=== PATIENT | female | born 1970 | race Caucasian/White ===

== ENCOUNTER → 2017-04-20 | Outpatient (CLI) | payer BC ==
[~2017-04-20] MED LIST: AMLO-114 PO; BACL10TA PO; GABA-113 PO; GADOXETATE DISODIUM IV PRN; GLIP5TAB3 PO; LOSA50TA6 PO; METF-383 PO; ONDA4TAB46 PO; OXYC7.5T65 PO; PANC6000 PO; PANT40TA PO; PROC1TAB5 PO; XLD/500 PO
--- NOTE | 2017-04-20 11:33 | DIAGNOSTIC IMAGING REPORT ---
ABDOMINAL MRI WITH AND WITHOUT INTRAVENOUS CONTRAST HISTORY: Assess for hepatic metastatic disease. PANCREATIC CA, RISING TUMOR MARKERS TECHNIQUE: Multiplanar multisequence MRI of the abdomen was performed both before and after the intravenous administration of 10 cc of Eovist contrast to evaluate the liver. COMPARISON STUDY: Outside hospital chest CT 12/09/2016. FINDINGS: No hepatic masses. Mild periportal edema. Prior Whipple procedure. The spleen and kidneys are unremarkable. Gallbladder surgically absent. Mildly enlarged periaortic lymph nodes. Dominant lymph node measures 12 x 7 mm. The residual pancreatic body and tail enhances normally. No suspicious osseous lesions identified. The lung bases are clear. The visualized loops of bowel show no wall thickening or obstruction. Prior midline incision. Mild thickening of the adrenal glands. The main portal vein is patent. IMPRESSION: 1. No hepatic masses. 2. Mild periportal edema. 3. Prior Whipple procedure. 4. A few mildly enlarged periaortic lymph nodes. This could represent metastatic disease. Follow-up is recommended Electronically signed by: Jack Vaughn M.D. 04/20/2017 11:31 AM Dictated Date/Time: 04/20/2017 11:17 AM
== END | disposition home or self-care (01) ==
LOC: C.MRIBC 08:36
PROVIDERS: ATTEND Internal Medicine Hematology & Oncology
DX: C25.9 Malignant neoplasm of pancreas, unspecified (principal)

== ENCOUNTER → 2017-10-06 | Outpatient (CLI) | payer BC ==
[~2017-10-06] MED LIST changes: -AMLO-114 PO; +AMLO10TA3 PO; +AMOX1TAB43 PO; +ATV5 SL; +BISM262S27 PO; +CEPH-571 PO; +CEPH500C2 PO; +CZR50 PO; +DIPH-416 PO; +DLDI.5 IV; +DRGTP12 TOP; +DRGTP25 TD; +DRGTP50 TOP; +DRGTP75 TOP; +ENOX80IN SQ; +FNTTP25 TOP; +FRS/40 PO; -GABA-113 PO; +GABA800T PO; -GADOXETATE DISODIUM IV PRN; +GLIP10TA9 PO; +GLIP5TAB11 PO; -GLIP5TAB3 PO; +HYDR2TAB48 PO; +METO25TA3 PO; +NORT10CA2 PO; +ONDA-170 PO; -ONDA4TAB46 PO; +OXYC-90 PO; -OXYC7.5T65 PO; -PANT40TA PO; +POTA-639 PO; +POTA1CAP2 PO; +PROC10TA PO; -PROC1TAB5 PO; +RXC30 PO; +RXNS10 PO; +SCOP1.5D2 TD; +SERT-234 PO; +SPIR25TA5 PO; +SULF800T23 PO; +TPRSR25 PO; +spironolactone
[2017-10-06 15:03] VITALS: BP 105/70; PULSE 57; TEMP 36.7; O2SAT 97
--- NOTE | 2017-10-06 17:12 | Radiation Oncology Follow-Up ---
Radiation Oncology Follow-Up Date of Visit Oct 06, 2017. Reason For Visit One-month follow-up in cancer survivorship care plan Radiation Completion Date finished 08-31-2017 Diagnosis (1) Pancreatic cancer Status: Acute Onset Date: 09/24/2016 Histology Subtype: adenocarcinoma Stage: ll (B) Permanent Comment: Painless jaundice Status post stent placement and ERCP 09/03/2016 Status post Whipple procedure 10/28/2016 Adenocarcinoma of the head of the pancreas Stage pT3 pN1 M0 positive, bile duct margin Systemic chemotherapy with gemcitabine and capecitabine planned for 6 cycles Status post completion of combined radiation and chemotherapy 08/31/2017 she received 5400 cGy. Treatment compromised due to delays secondary to Clostridium difficile Last Edited By: Maribell Chaudhry on Sep 10, 2017 08:17 History of Present Illness Ms. Evans presented with a history of 70 pound weight loss, pruritus, jaundice and abdominal pain. On 08/11/2016 patient underwent an ultrasound of the abdomen which revealed hepatomegaly with increased echogenicity likely due to fatty infiltration of the liver. The common bile duct measured 1.14 cm in diameter. On 2015 patient underwent an MRI. This showed a 1.3 cm long segment of marked near wing of the mid common bile duct. The appearance was more consistent with a stricture then with a stone. There was considerable distention of the biliary tree above the level of the stricture. The degree of up stream biliary ductal distention was similar to that seen on the prior ultrasound in greater then noted on a prior CT scan from 04/03/2016. A stent was placed. These findings were felt to be worrisome for malignant stricture and an ERCP was recommended. On 09/03/2016 the patient underwent an ERCP at [facility]. The upper GI tract was grossly normal. The entire biliary tree was diffusely dilated secondary to a stricture. The largest diameter was 1.3 cm. The lower third of the main bile duct contained a single localized stenosis 2.0 cm in length. The stricture had a malignant appearance and cytology was performed. Cytology was reportedly negative. Therefore on September 08 patient underwent an upper GI endoscopy by Dr. Celaya. The biliary stent was identified in the upper GI was otherwise unremarkable. A gastric biopsy was negative. Fine-needle aspiration biopsy of the celiac lymph node level 20 was benign and a fine-needle aspiration biopsy head of the pancreas was benign. On Dr. Celaya performed an upper EUS for a suspected mass in the pancreas. The stent was visualized in the common bile duct there was no significant endosonographic abnormalities in the left lobe of the liver. There was no sign of significant endosonographic abnormality in the pancreatic body tail or pancreatic duct. Pancreas was well visualized and an irregular mass was identified in the pancreatic head. This mass was hypoechoic measuring 2.2 x 1.7 cm in maximal dimension. An intact interface was seen between the mass in the superior mesenteric artery, portal vein, splenic vein and duodenal suggesting a lack of invasion. The remainder the pancreas was examined. Fine-needle aspiration for cytology was performed. This showed cells that were suspicious for malignancy with a fragments of atypical ductal epithelium that were suspicious for carcinoma. On 10/05/2016 Dr. Celaya performed an endoscopic ultrasound that again identified a mass in the pancreatic head that was staged as a T2 NX M0 by endosonographic criteria On 10/08/[address] scan of the chest abdomen and pelvis with IV contrast and oral contrast. This showed an ill-defined hypoechoic mass measuring 1.8 x 2.1 cm involving the pancreatic head and uncinate process. There were mildly enlarged upper abdominal and retroperitoneal lymph nodes which were indeterminant. There were slightly prominent pericardial lymph nodes also indeterminant. A few bilateral lung nodules and thickening of the adrenals probably due to hyperplasia. Patient was seen by Dr. Keaton Solitario and evaluated for the possible role of surgery. He discussed a pancreaticoduodenectomy and pedicled omental flap. This was scheduled and performed on 10/28/2016. 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 The tumor measured 3.2 x 2.9 x 2.4 cm in greatest dimension and extends to the bile duct margin and 1 mm from the peripancreatic soft tissue margin. The pancreatic distal margin, the uncinate margin, the stomach and duodenal margins were all negative for carcinoma. There was evidence of lymphovascular invasion. 17 lymph nodes were taken 7 of which were positive for metastatic carcinoma. The tumor invaded the king-pancreatic soft tissue. There was evidence of perineural invasion. The final pathologic stage was pT3 pN1, Accession #: [id number]. Patient was seen by Dr. Yaz Olivares for evaluation of the role of adjuvant systemic chemotherapy on 11/25/2016. She discussed adjuvant treatment options that included a GemCAP regimen consisting of Gemcitabine 1000 milligrams per meter squared on days 1 and 8 and every 28 days,Xeloda 830 mg/m on days 1-21 every 28 days for 6 cycles followed by chemotherapy RT with Capecitabine if no recurrences are noted. She recommended restaging CT scans of the chest abdomen and pelvis was performed on 12/10/2016. These showed the expected postsurgical changes from the Whipple procedure is without evidence of recurrent or metastatic disease. Patient agreed and started her first cycle of systemic chemotherapy which she tolerated well. Patient presents today to discuss the potential role of radiation following completion of her initial portion of chemotherapy. It is for this reason the patient is seen in referral. She has now completed 5 of a planned 6 cycles of chemotherapy. She is receiving gemcitabine and Xeloda. The medication is being given 3 weeks on and one-week off. She does have fatigue. She has had some episodes of nausea and vomiting. She also had associated diarrhea. She has had cutb-van-aouu syndrome. All side effects have been manageable. She has soreness of the mouth. She uses Magic mouthwash and saline rinses. She stated this coming Wednesday we will be her final dose of chemotherapy. She has returned today to begin the process of preparing for radiation therapy. She stated that she had an echocardiogram and has been diagnosed with hypertrophic cardiomyopathy. She is scheduled to see a bilingual call center representative. She completed her final cycle of treatment and then returned for combined radiation and chemotherapy. The chemotherapy Was comprised of Xeloda. The radiation was completed 08/31/2017. She received 5400 cGy Interim History She continues to have issues with diarrhea. She has 10 bowel movements per day. She is being followed by gastroenterology. She is currently using Kaopectate and cholestyramine. The pancreatic enzyme Creon has been increased from 2 pills to 4. That change was made yesterday. She has intermittent abdominal cramping and pain. She previously had 2 episodes of Clostridium difficile. She was recently checked again and was negative for Clostridium difficile. She has discomfort in the right upper quadrant. She's had no vomiting and occasional nausea. She's been seen in follow-up by medical oncology and recheck scanning has been scheduled. Allergies Coded Allergies: Eggs or Egg-derived Products (Verified Allergy, Severe, edema airway and nausea/vomiting, 12/15/16) Pregabalin (Verified Allergy, Severe, ANAPHYLAXIS, 10/06/17) face swelling Hydrochlorothiazide (Verified Allergy, Mild, hives, 12/15/16) Simethicone (Verified Allergy, Mild, Muscle pain, 12/15/16) Home Medications Scheduled Amlodipine (Norvasc), 10 MG PO DAILY Baclofen (Lioresal), 10 MG PO TID Bismuth Subsalicylate (Kaopectate), 30 ML PO UD Furosemide (Lasix), 20 MG PO BID Gabapentin (Neurontin), 800 MG PO TID Glipizide (Glucotrol), 1 TAB PO BID Losartan Potassium (Cozaar), 1 TAB PO DAILY Metformin Hcl (Glucophage), 850 MG PO BID Pancrelipase (Lipase-Protease- (Creon), 4 CAP PO QID Potassium Ext Rel (Klor-Con), 40 MEQ PO BID [spironolactone], 10 MG BID Scheduled PRN Oxycodone Ir (Roxicodone Ir), 15 MG PO Q4H PRN for Severe Pain Prochlorperazine Maleate (Compazine), 10 MG PO Q6H PRN for Nausea or Vomiting Review of Systems Gastrointestinal: Symptoms: Nausea, Diarrhea GI Comments: diarrhea many times a day 5-12 times a day ( does not have c diff ) Oral: Symptoms: Scant Saliva/Dry Mouth Other Oral Symptoms: "occ difficulty swallowing " Respiratory: Symptoms: WNL Urinary: Symptoms: Nocturia Comments: 5 times a night , denies pain or burning , gets up to move her bowels Skin: Symptoms: No Problems Additional Notes: She completed a distress management report and answered "no" to all questions other than she has concerns about the ongoing problem with diarrhea. Physical Exam Vital Signs Date Time Temp Pulse Resp B/P (MAP) Pulse Ox O2 Delivery O2 Flow Rate FiO2 10/06/17 15:03 36.7 57 16 105/70 97 ECOG Performance Status: 0 General Appearance: no apparent distress Eyes: normal inspection, EOMI ENT: normal ENT inspection, hearing grossly normal Respiratory/Chest: lungs clear, no respiratory distress, no accessory muscle use Cardiovascular: regular rate, rhythm, no gallop, no murmur Abdomen: normal bowel sounds, soft, no organomegaly, no pulsatile mass, + pertinent finding (very slight tenderness in the upper right quadrant.) Extremities: no pedal edema Neurologic/Psychiatric: no motor/sensory deficits, alert, normal mood/affect Pain Management Patient Reports Pain: Yes Side: Right Pain Location: Abdomen Patient Preferred Pain Scale: 0 - 10 Initial Pain Intensity: 2.0 Pain Management Plan Her pain does not require oral or prescriptive pain medications. Assessment & Plan Plan: Her case was reviewed with Dr. Dr. Aldrich. We've asked her to stop the Kaopectate and start Lomotil and Imodium on a regular basis. She'll continue on the cholestyramine. We have discussed steatorrhea and radiation enteritis. Information was given to her on both possible diagnoses. I've asked her to do a search on diet she should be following for possible steatorrhea. If this is radiation enteritis she may benefit from sulfasalazine. Prescription was given for 500 mg twice a day. She is also going to take Metamucil daily. I've asked her to first try the Metamucil, Imodium, and Lomotil. If this does not help and she should add sulfasalazine. We asked to return to our office in 2 weeks to review if she is responding to treatment. She'll continue follow-up also with gastroenterology, medical oncology, and her primary care physician. Today we completed a cancer survivorship care plan. A copy to was given to the patient. She was also given a survivorship booklet. She is scheduled for recheck CT scan 11/16/2017. This will be obtained and reviewed when complete. This has been ordered through Dr. Olivares's office. Total Time In Follow-Up I spent 25 minutes speaking with the patient performing examination. I spent 20 minutes reviewing information, preparing the survivorship chip document, doing medical research, and completing this note. Copy To Mandeep Celaya DO; Yaz Olivares MD; Jose Luis Santiago II MD Problem Qualifiers (1) Pancreatic cancer: Pancreatic malignancy location: head of pancreas Qualified Codes: C25.0 - Malignant neoplasm of head of pancreas
== END | disposition home or self-care (01) ==
LOC: C.ONC 14:53
PROVIDERS: ATTEND Physician Assistant Medical
DX: Z08 Encounter for follow-up examination after completed treatment for malignant neoplasm (principal); Z92.3 Personal history of irradiation; Z85.07 Personal history of malignant neoplasm of pancreas

== ENCOUNTER → 2018-02-18 | Outpatient (CLI) | payer BC ==
[~2018-02-18] MED LIST changes: +AMLO-114 PO; -AMLO10TA3 PO; -AMOX1TAB43 PO; -ATV5 SL; -CEPH-571 PO; -CEPH500C2 PO; -CZR50 PO; -DIPH-416 PO; -DLDI.5 IV; -DRGTP12 TOP; -DRGTP25 TD; -DRGTP50 TOP; -DRGTP75 TOP; -ENOX80IN SQ; -FNTTP25 TOP; -GLIP5TAB11 PO; -HYDR2TAB48 PO; -METO25TA3 PO; -NORT10CA2 PO; -ONDA-170 PO; -OXYC-90 PO; +OXYC1TAB3 PO; -POTA1CAP2 PO; -PROC10TA PO; +PROC1TAB5 PO; -RXC30 PO; -RXNS10 PO; -SCOP1.5D2 TD; -SERT-234 PO; -SPIR25TA5 PO; -SULF800T23 PO; -TPRSR25 PO; -XLD/500 PO
--- NOTE | 2018-02-18 15:06 | DIAGNOSTIC IMAGING REPORT ---
LEFT UPPER EXTREMITY VENOUS DOPPLER ULTRASOUND CLINICAL HISTORY: Left neck swelling. COMPARISON STUDY: No previous studies for comparison. TECHNIQUE: Sonography of the deep venous system of the left upper extremity was performed. FINDINGS: No deep venous thrombus was identified within the left upper extremity. There was slow flow within the left internal jugular vein but no thrombus was identified. IMPRESSION: No deep venous thrombus within the left upper extremity. Electronically signed by: Chris Taveras M.D. 02/18/2018 3:05 PM Dictated Date/Time: 02/18/2018 3:03 PM
== END | disposition home or self-care (01) ==
LOC: C.ULTRBC 14:30
PROVIDERS: ATTEND Internal Medicine Hematology & Oncology
DX: C25.9 Malignant neoplasm of pancreas, unspecified (principal); G89.3 Neoplasm related pain (acute) (chronic); R22.1 Localized swelling, mass and lump, neck

== ENCOUNTER 2018-02-23 17:59 | Inpatient (IN) | payer BC, OTHER ==
[~2018-02-23] VITALS: Ht 165.1 cm; Wt 88.5 kg
[2018-02-23] MEDS ORDERED: SODIUM CHLORIDE 0.9% 1000ML 250 ML IV STA (18:18)
[2018-02-23] MEDS ORDERED: ONDANSETRON INJ 2 MG/ML 2 ML VIAL IV STA (18:18)
--- NOTE | 2018-02-23 18:27 | EMERGENCY ROOM VISIT NOTE ---
History Report prepared by Pollo: Andre Vitale Under the Supervision of: Dr. Medardo Sy M.D. First contact with patient: 18:08 Chief Complaint: OTHER COMPLAINT Stated Complaint: STAGE 5 METASTATIC PANCREATIC CA- FACIAL SWELLING History of Present Illness The patient is a 48 year old female who presents to the Emergency Room with complaints of intermittent swelling in her face and shortness of breath that has been occurring since Wednesday, 2 days ago. The patient is currently being treated for pancreatic cancer with metastasis to her kidneys, lungs, and lymph nodes. The patient just started a new course of chemotherapy on Wednesday, and does note that she had some sweating with the last drug bolus. The patient notes that the final drug was run at home by a home health nurse which was set to run over 46 hours. Since starting these drugs the patient noticed severe swelling in her face when she would wake up in the morning. She notes that the swelling would inhibit her from opening her eyes. With the swelling, she has also felt shortness of breath and hoarseness in her voice. She also notes noticing some blood when blowing her nose. The patient did take Benadryl, which she believed improved her symptoms some. The patient's last chemotherapy agent was just finished and disconnected before she came to the department. Source of History: patient Onset: 2 days ago Position: head (face), chest Quality: other (SOB, swelling to face) Timing: intermittent Modifying Factors (Relieving): other (Bendaryl ) Associated Symptoms: + diaphoresis Review of Systems See HPI for pertinent positives & negatives. A total of 10 systems reviewed and were otherwise negative. Past Medical & Surgical Medical Problems: (1) Hypertension (2) Pancreatic cancer Pancreatic cancer Hypertension Family History Hypertension Social History Smoking Status: Never Smoker Current/Historical Medications Scheduled Amlodipine (Norvasc), 10 MG PO DAILY Baclofen (Lioresal), 10 MG PO TID Bismuth Subsalicylate (Kaopectate), 30 ML PO UD Furosemide (Lasix), 20 MG PO BID Gabapentin (Neurontin), 800 MG PO TID Glipizide (Glucotrol), 1 TAB PO BID Losartan Potassium (Cozaar), 1 TAB PO DAILY Metformin Hcl (Glucophage), 850 MG PO BID Pancrelipase (Lipase-Protease- (Creon), 4 CAP PO QID Potassium Ext Rel (Klor-Con), 40 MEQ PO BID [spironolactone], 10 MG BID Scheduled PRN Oxycodone Ir (Roxicodone Ir), 15 MG PO Q4H PRN for Severe Pain Prochlorperazine Maleate (Compazine), 10 MG PO Q6H PRN for Nausea or Vomiting Allergies Coded Allergies: Eggs or Egg-derived Products (Verified Allergy, Severe, edema airway and nausea/vomiting, 12/15/16) Pregabalin (Verified Allergy, Severe, ANAPHYLAXIS, 10/06/17) face swelling Hydrochlorothiazide (Verified Allergy, Mild, hives, 12/15/16) Simethicone (Verified Allergy, Mild, Muscle pain, 12/15/16) Physical Exam Vital Signs Date Time Temp Pulse Resp B/P (MAP) Pulse Ox O2 Delivery O2 Flow Rate FiO2 02/23/18 20:20 85 02/23/18 20:18 85 16 116/81 98 Nasal Cannula 2.0 02/23/18 19:15 79 20 107/73 95 Room Air 02/23/18 18:51 Room Air 02/23/18 18:04 36.8 88 18 109/70 94 Room Air Physical Exam GENERAL: Patient is in no acute distress. HEENT: No acute trauma, subtle facial edema noted, mucous membranes moist, no nasal congestion, no scleral icterus. NECK: No stridor, no adenopathy, no meningismus, trachea is midline. LUNGS: There are scattered crackles bilaterally. No wheezing. Breath sounds are equal. No respiratory distress. HEART: A mild systolic murmur is noted, with what appears to be a friction rub. There is a regular rhythm and regular rate. ABDOMEN: Soft, nontender, bowel sounds positive, no hernias, no peritonitis. EXTREMITIES: No cyanosis. Mild bilateral pedal edema, full range of motion of all the joints without pain or difficulty, no signs for acute trauma. NEUROLOGIC: Oriented x 3, no acute motor or sensory deficits, no focal weakness. SKIN: No rash, no jaundice, no diaphoresis. Medical Decision & Procedures ER Provider Diagnostic Interpretation: Radiology results as stated below per my review and radiologist interpretation: CHEST ONE VIEW PORTABLE HISTORY: 48 years-old Female EVALUATE ALTERED MENTAL STATUS/WEAKNESS acute altered mental status with weakness COMPARISON: CT of the chest 04/07/2017 TECHNIQUE: Portable AP view of the chest FINDINGS: Patient is slightly rotated to the right. Indeterminate opacity of the medial left upper lobe may be secondary to vascular pedicle. Left subclavian Wjdmbe-n-Wido catheter is noted with distal tip terminating in the expected region of the proximal SVC. Cardiac silhouette is enlarged. No pneumothorax or large pleural effusion. Hazy subsegmental bibasilar opacities with 2.5 cm round opacity projecting over the left lung base. The bones of the chest appear grossly intact. IMPRESSION: 1. Subsegmental bibasilar opacities suggest atelectasis or pneumonitis. 2. 2.5 cm round opacity projecting over the left lung base should be correlated with ordered CTA chest of same day. The above report was generated using voice recognition software. It may contain grammatical, syntax or spelling errors. Electronically signed by: Jesse Mcneil M.D. 02/23/2018 6:50 PM Dictated Date/Time: 02/23/2018 6:[address]: IMPRESSION: 1. There is no evidence of pulmonary embolus in the main, lobar, or segmental pulmonary arteries. 2. Cardiomegaly and advanced emphysema with evidence of pulmonary artery hypertension. 3. There is dependent airspace consolidation seen at both lung bases, with patchy consolidative change seen throughout the left upper lobe. The appearance suggests pneumonia. Clinical correlation will be required. 4. There are trace pleural effusions. 5. There is a large mass lesion at the paramediastinal left apex with numerous additional (at least 15) pulmonary lesions as above. The appearance is consistent with metastatic disease. Correlation with the patient's oncologic history will be required. 6. There is evidence of multifocal hepatic metastatic disease. 7. Additional findings as above. Electronically signed by: Medardo Walker M.D. 02/23/2018 8:36 PM Dictated Date/Time: 02/23/2018 8:22 PM Laboratory Results 02/23/18 18:45 Red Blood Count 3.92, Mean Corpuscular Volume 75.0, Mean Corpuscular Hemoglobin 24.2, Mean Corpuscular Hemoglobin Concent 32.3, Mean Platelet Volume 8.8, Neutrophils (%) (Auto) 90.2, Lymphocytes (%) (Auto) 7.0, Monocytes (%) (Auto) 2.1, Eosinophils (%) (Auto) 0.5, Basophils (%) (Auto) 0.0, Neutrophils # (Auto) 7.47, Lymphocytes # (Auto) 0.58, Monocytes # (Auto) 0.17, Eosinophils # (Auto) 0.04, Basophils # (Auto) 0.00 02/23/18 18:45 Test 02/23/18 18:45 White Blood Count 8.28 K/uL (4.8-10.8) Red Blood Count 3.92 M/uL (4.2-5.4) Hemoglobin 9.5 g/dL (12.0-16.0) Hematocrit 29.4 % (37-47) Mean Corpuscular Volume 75.0 fL (80-100) Mean Corpuscular Hemoglobin 24.2 pg (25-34) Mean Corpuscular Hemoglobin Concent 32.3 g/dl (32-36) Platelet Count 247 K/uL (130-400) Mean Platelet Volume 8.8 fL (7.4-10.4) Neutrophils (%) (Auto) 90.2 % Lymphocytes (%) (Auto) 7.0 % Monocytes (%) (Auto) 2.1 % Eosinophils (%) (Auto) 0.5 % Basophils (%) (Auto) 0.0 % Neutrophils # (Auto) 7.47 K/uL (1.4-6.5) Lymphocytes # (Auto) 0.58 K/uL (1.2-3.4) Monocytes # (Auto) 0.17 K/uL (0.11-0.59) Eosinophils # (Auto) 0.04 K/uL (0-0.5) Basophils # (Auto) 0.00 K/uL (0-0.2) RDW Standard Deviation 48.0 fL (36.4-46.3) RDW Coefficient of Variation 18.0 % (11.5-14.5) Immature Granulocyte % (Auto) 0.2 % Immature Granulocyte # (Auto) 0.02 K/uL (0.00-0.02) Prothrombin Time 15.1 SECONDS (9.0-12.0) Prothromb Time International Ratio 1.4 (0.9-1.1) Activated Partial Thromboplast Time 32.6 SECONDS (21.0-31.0) Partial Thromboplastin Ratio 1.3 Anion Gap 3.0 mmol/L (3-11) Est Creatinine Clear Calc Drug Dose 148.2 ml/min Estimated GFR () 133.5 Estimated GFR (Non- 115.2 BUN/Creatinine Ratio 28.3 (10-20) Calcium Level 8.3 mg/dl (8.5-10.1) Magnesium Level 1.8 mg/dl (1.8-2.4) Total Bilirubin 0.7 mg/dl (0.2-1) Aspartate Amino Transf (AST/SGOT) 102 U/L (15-37) Alanine Aminotransferase (ALT/SGPT) 51 U/L (12-78) Alkaline Phosphatase 333 U/L (45-117) Troponin I 4.680 ng/ml (0-0.045) Total Protein 6.9 gm/dl (6.4-8.2) Albumin 2.2 gm/dl (3.4-5.0) Globulin 4.7 gm/dl (2.5-4.0) Albumin/Globulin Ratio 0.5 (0.9-2) Lipase 26 U/L (73-393) Thyroid Stimulating Hormone (TSH) 2.460 uIu/ml (0.300-4.500) Laboratory results reviewed by me. Medications Administered Medications (Trade) Dose Ordered Sig/Kalen Route Start Time Stop Time Status Last Admin Dose Admin Sodium Chloride 250 ml @ 999 mls/hr Q16M STAT IV 02/23/18 18:18 02/23/18 18:33 DC 02/23/18 19:13 999 MLS/HR Ondansetron HCl (Zofran Inj) 4 mg NOW STAT IV 02/23/18 18:18 02/23/18 18:22 DC 02/23/18 19:12 4 MG Morphine Sulfate (MoRPHine SULFATE INJ) 4 mg Q15M PRN IV 02/23/18 18:30 03/09/18 18:29 02/23/18 20:40 4 MG Piperacillin Sod/ Tazobactam Sod (Zosyn Iv) 4.5 gm NOW STAT IV 02/23/18 18:59 02/23/18 19:00 DC 02/23/18 19:14 4.5 GM Aspirin (Aspirin Chew) 324 mg NOW STAT PO 02/23/18 19:45 02/23/18 19:46 DC 02/23/18 20:16 324 MG ECG Per My Interpretation Indication: SOB/dyspnea Rate (beats per minute): 80 Rhythm: normal sinus Findings: no ectopy, other (Old inferior infarct, potential old lateral infarct , no CAMILLA, no PVCs) Comparison ECG Date: no prior available ED Course 1808: The patient was evaluated in room C2B. A complete history and physical exam was performed. 1817: Ordered Zofran 4 mg IV, Sodium Chloride 250 mL @ 999 mL/hr IV. 1829: Ordered Morphine Sulfate 4 mg IV. 1858: Ordered Zosyn 4.5 gm IV. 1944: Ordered Aspirin 324 mg PO. I spoke with the patient, I did consult the on-call hospitalist and cardiology. Given the findings, a hospital stay is warranted. Medical Decision Differential diagnosis includes; medication reaction, pericarditis, pericardial effusion, superior vena cava syndrome, PE, heart failure, pneumonia, anemia, thyroid disorder. There is no leukocytosis. The patient is anemic, the drop in hemoglobin is likely secondary to her chemotherapy. No significant electrolyte abnormality or kidney failure. There were a few liver enzyme elevations. Patient appears to be in a euthyroid state. INR was slightly elevated. Chest x-ray showed a potential pneumonia at the left base. There was a mass to the left upper lung. No pneumothorax. EKG showed a sinus rhythm with evidence for old infarcts in the inferior and lateral leads. Cardiac enzyme testing 1 is elevated consistent with cardiac injury or strain. Blood cultures are pending. Chest CT does not show evidence for PE, pneumonia and malignancy were seen. The patient received IV saline, she was given IV Zosyn as antibiotic coverage. She received IV morphine for pain, IV Zofran for nausea. She received oral aspirin as it is cardioprotective. I did speak with cardiology. We talked about the troponin elevation--no acute intervention required or warranted. I did speak with the patient and case management. Given the findings, a hospital stay is required. Further workup is required. I am concerned she may have pericarditis or myocarditis. [place] is a consideration. Pneumonia is a concern. The on-call hospitalist was consulted. Medication Reconcilliation Current Medication List: was personally reviewed by me Blood Pressure Screening Patient's blood pressure: Normal blood pressure Impression Primary Impression: Shortness of breath Additional Impressions: Anemia Elevated troponin Malignancy Pneumonia Critical Care I have personally spent greater than 30 minutes of critical care time in the direct management of this patient. This includes bedside care, interpretation of diagnostic studies and testing, discussion with consultants, the patient, and family members, and other required patient management activities. This 30 minutes is in excess of all separately billable procedures. Scribe Attestation The scribe's documentation has been prepared under my direction and personally reviewed by me in its entirety. I confirm that the note above accurately reflects all work, treatment, procedures, and medical decision making performed by me. Departure Information Dispostion Being Evaluated By Hospitalist Referrals Jose Luis Santiago II MD (PCP) Patient Instructions My [facility] Problem Qualifiers
[2018-02-23] MEDS ORDERED: OPTIRAY 320 IV PRN (18:30)
--- NOTE | 2018-02-23 18:51 | DIAGNOSTIC IMAGING REPORT ---
CHEST ONE VIEW PORTABLE HISTORY: 48 years-old Female EVALUATE ALTERED MENTAL STATUS/WEAKNESS acute altered mental status with weakness COMPARISON: CT of the chest 04/07/2017 TECHNIQUE: Portable AP view of the chest FINDINGS: Patient is slightly rotated to the right. Indeterminate opacity of the medial left upper lobe may be secondary to vascular pedicle. Left subclavian Xomlbx-n-[id number] catheter is noted with distal tip terminating in the expected region of the proximal SVC. Cardiac silhouette is enlarged. No pneumothorax or large pleural effusion. Hazy subsegmental bibasilar opacities with 2.5 cm round opacity projecting over the left lung base. The bones of the chest appear grossly intact. IMPRESSION: 1. Subsegmental bibasilar opacities suggest atelectasis or pneumonitis. 2. 2.5 cm round opacity projecting over the left lung base should be correlated with ordered CTA chest of same day. The above report was generated using voice recognition software. It may contain grammatical, syntax or spelling errors. Electronically signed by: Jesse Mcneil M.D. 02/23/2018 6:50 PM Dictated Date/Time: 02/23/2018 6:44 PM
[2018-02-23] MEDS ORDERED: PIPERACILLIN/TAZOBACTAM 4.5 GM/100ML D5W IV STA (18:59)
[2018-02-23 19:03] LABS: EOS % 0.5 %; EOS ABS # 0.04 K/uL (0-0.5); HEMATOCRIT 29.4 % (37-47); HEMOGLOBIN 9.5 g/dL (12.0-16.0); IG# 0.02 K/uL (0.00-0.02); LYMPH ABS # 0.58 K/uL (1.2-3.4); MEAN CORPUSCULAR HEMOGLOBIN 24.2 pg (25-34); MEAN CORPUSCULAR HGB CONC 32.3 g/dl (32-36); MEAN PLATELET VOLUME 8.8 fL (7.4-10.4); MONO % 2.1 %; MONO ABS # 0.17 K/uL (0.11-0.59); NEUT % 90.2 %; NEUT ABS # 7.47 K/uL (1.4-6.5); PLATELET COUNT 247 K/uL (130-400); WHITE BLOOD COUNT 8.28 K/uL (4.8-10.8)
[2018-02-23 19:13] LABS: INR 1.4 (0.9-1.1); PTT PATIENT 32.6 SECONDS (21.0-31.0)
[2018-02-23] MEDS: MoRPHine SULFATE 4 MG/ML 1 ML CARP\\VIAL IV PRN ×3 (19:14→23:27)
[2018-02-23 19:21] LABS: ALBUMIN 2.2 gm/dl (3.4-5.0); CALCIUM 8.3 mg/dl (8.5-10.1); CREATININE 0.49 mg/dl (0.60-1.20); POTASSIUM 3.9 mmol/L (3.5-5.1)
[2018-02-23 19:45] LABS: TOTAL PROTEIN 6.9 gm/dl (6.4-8.2)
[2018-02-23] MEDS ORDERED: ASPIRIN 81 MG CHEW PO STA (19:45)
--- NOTE | 2018-02-23 20:37 | DIAGNOSTIC IMAGING REPORT ---
CT ANGIOGRAM OF THE CHEST CLINICAL HISTORY: Atypical chest pain. COMPARISON STUDY: Chest x-ray dated 02/23/2018. Chest CT dated 04/07/2017. Abdominal CT dated 06/02/2017. TECHNIQUE: Following the IV administration of 117 cc of Optiray 320, CT angiogram of the chest was performed from the upper abdomen to the thoracic inlet utilizing the pulmonary embolus protocol. Images are reviewed in the axial, sagittal, and coronal planes. 3-D MIPS images are created and assessed. IV contrast was administered without complication. A dose lowering technique was utilized adhering to the principles of ALARA. CT DOSE: 546.33 mGy.cm FINDINGS: Thyroid: Imaged portions of the thyroid gland are normal in size and attenuation. Thoracic aorta: The thoracic aorta is normal in caliber and demonstrates standard 3-vessel arch anatomy. No dissection is seen. A left subclavian central venous infusion port is in place. Pulmonary vasculature: The pulmonary trunk is dilated, measuring 4.0 cm in transverse diameter. This indicates pulmonary artery hypertension. There are no filling defects identified in main, lobar, or segmental pulmonary branches to suggest pulmonary embolus. Heart: The heart is enlarged and there is trace pericardial fluid. There are coronary artery calcifications. Lungs and pleural spaces: Advanced emphysema is identified. There is a large peritoneum mediastinal mass lesion seen at the left apex on image #243. This measures approximately 7.5 x 6.5 x 7 cm and appears centrally necrotic. There are least 4 additional left pulmonary lesion is identified. The largest is in the lower lobe seen on image #131 and measures 2.8 cm. There are at least 7 additional lesions scattered throughout the right lung. The largest are seen at the right apex and images #250 measuring 1.4 cm and #245 measuring 1.0 cm. Dependent airspace consolidation is seen bilaterally and there are trace pleural effusions. Patchy consolidation is also seen throughout the left upper lobe and in the left lower lobe. The trachea and central airways are clear. Mild diffuse peribronchial thickening suggests reactive airway disease. Mediastinum: No mediastinal adenopathy is identified. Kristi: Clear. Axillae: There is no axillary lymphadenopathy. Upper abdomen: The liver is enlarged and demonstrates cirrhotic morphology with a nodular surface contour. There are numerous large low-attenuation hepatic lesions identified. A lesion in the right lobe seen on image #63 measures at least 8.5 cm. There is thickening of the adrenal glands, which is similar appearance to prior studies. Skeletal structures: The skeletal structures are heterogeneously osteopenic. There is a mild superior endplate compression deformity of L1. Degenerative change and mild hyperkyphosis are noted in the thoracic spine. No lytic or blastic bony lesions are clearly seen. IMPRESSION: 1. There is no evidence of pulmonary embolus in the main, lobar, or segmental pulmonary arteries. 2. Cardiomegaly and advanced emphysema with evidence of pulmonary artery hypertension. 3. There is dependent airspace consolidation seen at both lung bases, with patchy consolidative change seen throughout the left upper lobe. The appearance suggests pneumonia. Clinical correlation will be required. 4. There are trace pleural effusions. 5. There is a large mass lesion at the paramediastinal left apex with numerous additional (at least 15) pulmonary lesions as above. The appearance is consistent with metastatic disease. Correlation with the patient's oncologic history will be required. 6. There is evidence of multifocal hepatic metastatic disease. 7. Additional findings as above. Electronically signed by: Medardo Walker M.D. 02/23/2018 8:36 PM Dictated Date/Time: 02/23/2018 8:22 PM
[2018-02-23] MEDS ORDERED: NORT10CA2 PO (21:50)
[2018-02-23] MEDS ORDERED: RXC30 PO (21:50)
[2018-02-23] MEDS ORDERED: GLIP5TAB11 PO (21:50)
[2018-02-23] MEDS ORDERED: POTA1CAP2 PO (21:50)
[2018-02-23] MEDS ORDERED: SPIR25TA89 PO (21:50)
[2018-02-23] MEDS ORDERED: DRGTP12 TOP (21:50)
[2018-02-23] MEDS ORDERED: SERT-234 PO (21:50)
[2018-02-23] MEDS ORDERED: ENOX80IN SQ (21:50)
[2018-02-23] MEDS ORDERED: DRGTP50 TOP (21:50)
[2018-02-23] MEDS ORDERED: ONDA-170 PO (21:51)
[2018-02-23] MEDS ORDERED: DIPH-416 PO (21:51)
[2018-02-23] MEDS ORDERED: FNTTP25 TOP (22:16)
--- NOTE | 2018-02-23 22:16 | History and Physical ---
History & Physical Date & Time of Service: February 23, 2018 at 22:16 Chief Complaint: Stage 5 Metastatic Pancreatic Ca- Facial Swelling Primary Care Physician: Jose Luis Santiago II MD History of Present Illness Source: patient, clinic records, hospital records Patient is a 48-year-old female with a PMH of metastatic pancreatic cancer, HTN , DM II and other medical problems listed below who presents with intermittent facial swelling and SOB 2 days. Patient was just started on Fluorouracil chemotherapy on Wednesday for pancreatic cancer with metastases to kidneys, lungs and lymph nodes. Started to notice intermittent facial swelling once treatment was started, specifically when she wakes up in the morning. Patient's last chemotherapy dose was administered at home and was just finished prior to arrival to ED. States that swelling has since resolved. Has also been short of breath at rest for the past few days, which is not her baseline. Finds it easier to breathe when she is sitting upright at the edge of the bed. Has had a productive cough for the past 2 days with bloody mucus. Also has an associated "burning" pain in left chest with radiation up to throat with associated belching. Endorses nausea and vomiting since last week. Continues to have chronic abdominal pain. Denies fever, chills, headache, palpitations or dysuria. LE swelling at baseline. In ED, patient found to have PNA on CT chest. No leukocytosis. Troponin is elevated to 4.68. Past Medical/Surgical History Medical Problems: (1) Anemia Status: Chronic (2) DM II (diabetes mellitus, type II), controlled Status: Chronic (3) History of deep venous thrombosis or pulmonary embolus Status: Chronic (4) Hypertension Status: Chronic (5) Metastasis from pancreatic cancer Permanent Comment: mets to kidneys, lungs and lymph nodes Status: Chronic Family History Hypertension Social History Smoking Status: Former Smoker Allergies Coded Allergies: Eggs or Egg-derived Products (Verified Allergy, Severe, edema airway and nausea/vomiting, 12/15/16) Pregabalin (Verified Allergy, Severe, ANAPHYLAXIS, 10/06/17) face swelling Hydrochlorothiazide (Verified Allergy, Mild, hives, 12/15/16) Simethicone (Verified Allergy, Mild, Muscle pain, 12/15/16) Home Medications Scheduled Amlodipine (Norvasc), 10 MG PO DAILY Baclofen (Lioresal), 10 MG PO TID Enoxaparin (Lovenox), 80 MG SQ Q12H Fentanyl (Fentanyl), 1 PATCH TOP Q72H Gabapentin (Neurontin), 800 MG PO TID Glipizide (Glucotrol), 10 MG PO DAILY Losartan Potassium (Cozaar), 50 MG PO QPM Metformin Hcl (Glucophage), 850 MG PO BIDM Nortriptyline (Pamelor), 10-20 MG PO HS Sertraline (Zoloft), 200 MG PO HS Scheduled PRN Diphenoxylate/Atropine (Lomotil), 1 TAB PO DAILY PRN for Diarrhea Furosemide (Lasix), 40 MG PO BID PRN for Fluid Retention/Swelling Ondansetron Hcl (Zofran), 8 MG PO TID PRN for Nausea Oxycodone HCl (Oxycodone HCl), 30 MG PO Q4H PRN for Pain Potassium Chloride (Potassium Chloride Er), 10 MEQ PO BID PRN for If Lasix Taken Prochlorperazine Maleate (Compazine), 10 MG PO Q6H PRN for Nausea Spironolactone (Aldactone), 25 MG PO DAILY PRN for Leg Swelling Review of Systems Ten systems reviewed and negative except as noted in the HPI. Physical Exam Vital Signs Date Time Temp Pulse Resp B/P (MAP) Pulse Ox O2 Delivery O2 Flow Rate FiO2 02/23/18 21:30 70 20 126/74 98 Nasal Cannula 2.0 02/23/18 20:20 85 02/23/18 20:18 85 16 116/81 98 Nasal Cannula 2.0 02/23/18 19:15 79 20 107/73 95 Room Air 02/23/18 18:51 Room Air 02/23/18 18:04 36.8 88 18 109/70 94 Room Air General Appearance: + mild distress, + pertinent finding (chronically ill appearing. Seated at edge of bed. ) Head: normocephalic, atraumatic Eyes: normal inspection, PERRL, sclerae normal ENT: normal ENT inspection, hearing grossly normal, pharynx normal (dry mucous membranes), + pertinent finding (tongue swollen, mucosal sores ) Neck: supple, thyroid normal, trachea midline Respiratory/Chest: chest non-tender, no respiratory distress, no accessory muscle use, + decreased breath sounds (2/2 pain ), + crackles (bibasilar), + pertinent finding (Saturating well on 2L NC ) Cardiovascular: regular rate, rhythm, normal peripheral pulses, + systolic murmur Abdomen/GI: soft, no organomegaly, + tenderness (Diffuse TTP, no guarding ) Extremities/Musculoskelatal: normal inspection, no calf tenderness, + pertinent finding (1+ BLE edema ) Neurologic/Psych: no motor/sensory deficits, alert, oriented x 3, + depressed affect Skin: normal color, warm/dry Diagnostics Laboratory Results Results Past 24 Hours Test 02/23/18 18:45 02/23/18 21:35 Range/Units White Blood Count 8.28 4.8-10.8 K/uL Red Blood Count 3.92 4.2-5.4 M/uL Hemoglobin 9.5 12.0-16.0 g/dL Hematocrit 29.4 37-47 % Mean Corpuscular Volume 75.0 80-100 fL Mean Corpuscular Hemoglobin 24.2 25-34 pg Mean Corpuscular Hemoglobin Concent 32.3 32-36 g/dl Platelet Count 247 130-400 K/uL Mean Platelet Volume 8.8 7.4-10.4 fL Neutrophils (%) (Auto) 90.2 % Lymphocytes (%) (Auto) 7.0 % Monocytes (%) (Auto) 2.1 % Eosinophils (%) (Auto) 0.5 % Basophils (%) (Auto) 0.0 % Neutrophils # (Auto) 7.47 1.4-6.5 K/uL Lymphocytes # (Auto) 0.58 1.2-3.4 K/uL Monocytes # (Auto) 0.17 0.11-0.59 K/uL Eosinophils # (Auto) 0.04 0-0.5 K/uL Basophils # (Auto) 0.00 0-0.2 K/uL RDW Standard Deviation 48.0 36.4-46.3 fL RDW Coefficient of Variation 18.0 11.5-14.5 % Immature Granulocyte % (Auto) 0.2 % Immature Granulocyte # (Auto) 0.02 0.00-0.02 K/uL Prothrombin Time 15.1 9.0-12.0 SECONDS Prothromb Time International Ratio 1.4 0.9-1.1 Activated Partial Thromboplast Time 32.6 21.0-31.0 SECONDS Partial Thromboplastin Ratio 1.3 Sodium Level 131 136-145 mmol/L Potassium Level 3.9 3.5-5.1 mmol/L Chloride Level 101 98-107 mmol/L Carbon Dioxide Level 27 21-32 mmol/L Anion Gap 3.0 3-11 mmol/L Blood Urea Nitrogen 14 7-18 mg/dl Creatinine 0.49 0.60-1.20 mg/dl Est Creatinine Clear Calc Drug Dose 148.2 ml/min Estimated GFR () 133.5 Estimated GFR (Non- 115.2 BUN/Creatinine Ratio 28.3 10-20 Random Glucose 121 70-99 mg/dl Calcium Level 8.3 8.5-10.1 mg/dl Magnesium Level 1.8 1.8-2.4 mg/dl Total Bilirubin 0.7 0.2-1 mg/dl Aspartate Amino Transf (AST/SGOT) 102 15-37 U/L Alanine Aminotransferase (ALT/SGPT) 51 12-78 U/L Alkaline Phosphatase 333 45-117 U/L Troponin I 4.680 0-0.045 ng/ml Total Protein 6.9 6.4-8.2 gm/dl Albumin 2.2 3.4-5.0 gm/dl Globulin 4.7 2.5-4.0 gm/dl Albumin/Globulin Ratio 0.5 0.9-2 Lipase 26 73-393 U/L Thyroid Stimulating Hormone (TSH) 2.460 0.300-4.500 uIu/ml Microbiology Results 02/23/18 Blood Culture, Received Pending 02/23/18 Blood Culture, Received Pending Diagnostic Radiology CXR: IMPRESSION: 1. Subsegmental bibasilar opacities suggest atelectasis or pneumonitis. 2. 2.5 cm round opacity projecting over the left lung base should be correlated with ordered CTA chest of same day. CT Chest/thorax: IMPRESSION: 1. There is no evidence of pulmonary embolus in the main, lobar, or segmental pulmonary arteries. 2. Cardiomegaly and advanced emphysema with evidence of pulmonary artery hypertension. 3. There is dependent airspace consolidation seen at both lung bases, with patchy consolidative change seen throughout the left upper lobe. The appearance suggests pneumonia. Clinical correlation will be required. 4. There are trace pleural effusions. 5. There is a large mass lesion at the paramediastinal left apex with numerous additional (at least 15) pulmonary lesions as above. The appearance is consistent with metastatic disease. Correlation with the patient's oncologic history will be required. 6. There is evidence of multifocal hepatic metastatic disease. 7. Additional findings as above. Impression Assessment and Plan Patient is a 48-year-old female with a PMH of metastatic pancreatic cancer, HTN , DM II and other medical problems listed below who presents with intermittent facial swelling and SOB 2 days and was found to have PNA. SOB 2/2 PNA, mets to lungs: -CT chest/thorax with evidence of -airspace consolidation seen at both lung bases -patchy consolidative change seen throughout the NIKKIE suggesting PNA -a large mass lesion at the paramediastinal left apex with additional (at least 15) pulmonary lesions as above consistent with metastatic disease -Zosyn initiated in ED. Plan to continue -Supplemental O2 -Blood cultures pending Elevated troponin: -Initial troponin of 4.68. -Endorses burning in chest, no overt pain -EKG without acute ST changes. Evidence of old infarct -Likely 2/2 R heart strain vs. chemo toxicity -No PE on CT chest/thorax CT -Continue trending troponin -Cardio consulted -Echo ordered -EKG in AM Metastatic pancreatic cancer: -S/p Whipple in [address] [facility] [place], multiple chemo regimens -Follows with Dr. Olivares -Mets to kidneys, lungs, lymph nodes -Recently started on Fluorouracil chemotherapy on Wednesday -Cont SQ lovenox -Cont home pain meds Anemia: -Hgb of 9.5 -Downtrending over past 6 months -Monitor closely -Transfuse if hgb <8 HTN: -Cont amlodipine Nausea, vomiting: -Cont antiemetics DM II: -A1c pending -Hold oral home meds -SSI Dysphagia: -Newly developed -Crush pills and administer in pudding -Aspiration precaution DVT Ppx: SQ lovenox Code status: FULL, per discussion with patient PCP: Pamela Dispo: Plan to return home once medically stable. Patient seen in collaboration with Dr. Leon. Please see addendum. Resuscitation Status VTE Prophylaxis Will order VTE Prophylaxis: Yes Assessment/Plan IM ATTENDING : Patient seen and examined. History obtained from the patient and records. Preceding documentation by Ms. Ana Rosa Pimentel PA-C reviewed. FINAL ASSESSMENT AND PLAN as follows, 1. Healthcare associated pneumonia immunocompromised patient. Aspiration risk. No sepsis. 2. Pleuritic chest pain with troponin elevation possible chemotherapy induced cardiotoxicity (myocarditis, vasospasm) 3. Episodic facial swelling Relieved by Benadryl at home Possible hypersensitivity to recent new chemotherapy regimen (FOLFORINOX) for metastatic pancreatic CA 4. hx metastatic pancreatic cancer status post surgery, chemoradiation progression of disease 5. Recent finding of nonocclusive thrombus, L brachiocephalic vein recent initiation of therapeutic Lovenox anticoagulation worsening of chronic abdominal pain, nausea, emesis, constipation Possible opioid induced constipation rule out bowel obstruction, intra-abdominal bleed 6. Anemia. Progressive slow drop in hemoglobin over the last several months Hemoglobin noted to be 9 since last month possibly from chemotherapy, intermittent hemorrhoidal bleed. 7. HTN, stable 8. DM2, on oral meds unknown baseline control 9. COPD, past tobacco abuse. Pulmo status at baseline PLAN: PCU for troponin elevation. Baseline ESR, CRP TTE, Cardio consult RE chest pain, abn troponin ER provider already in touch with Dr. Morse. Liban for HCAP, aspiration risk for now. Swallow eval. Bowel regimen. CT abdomen and pelvis. RE worsening abdominal pain Follow H and H. Anemia workup Appropriate to hold therapeutic Lovenox dosing for now given hemoptysis until hemoglobin stable ISS BG goal 140-180. Check hemoglobin A1c. Level 3 code status, okay with CPR, no intubation. Case discussed with Dr. Olivares ([facility]) She recommends checking serum tryptase level to test for possible recent hypersensitivity reaction and to initiate Lovenox 40 mg subcutaneous daily for DVT prophylaxis once hemoglobin stable.
[2018-02-23] MEDS ORDERED: DOCUSATE SODIUM/SENNA 50/8.6MG TAB PO ONE (23:55)
[2018-02-23] MEDS ORDERED: POLYETHYLENE (MIRALAX) 17 GM PACK PO ONE (23:55)
[2018-02-24] VITALS (8 sets, daily range): BP systolic 96–123; BP diastolic 63–78; PULSE 66–82; TEMP 36.5–37.1; O2SAT 93–98; Ht 165.1 cm; Wt 88.5 kg
[2018-02-24] MEDS ORDERED: PROCHLORPERAZINE INJ 5 MG in SYRINGE 4 ML IV PRN
[2018-02-24] MEDS ORDERED: ALBUT/IPRATROP 3MG/0.5MG NEB 3 ML VIAL INH PRN
[2018-02-24] MEDS ORDERED: POLYETHYLENE (MIRALAX) 17 GM PACK PO PRN
[2018-02-24] MEDS ORDERED: GLUCAGON FOR INJ 1 MG VIAL SQ PRN
[2018-02-24] MEDS ORDERED: OXYCODONE HCL IR 30 MG TAB (IMMEDIATE RELEASE) PO PRN
[2018-02-24] MEDS ORDERED: GLUCOSE 10 TABS/TUBE PO PRN
[2018-02-24] MEDS ORDERED: CARBOHYDRATES FOR HYPOGLYCEMIA PO PRN
[2018-02-24] MEDS ORDERED: GLUCOSE 40% GEL 15 GM TUBE PO PRN
[2018-02-24] MEDS ORDERED: DEXTROSE 50% 50 ML SYR IV PRN
[2018-02-24] MEDS ORDERED: INSULIN ASPART 100 UNITS/ML 3 ML PEN SC STA (00:02)
[2018-02-24] MEDS ORDERED: PIPERACILL/TAZOBAC CONSULT ACTIVE PRN (00:30)
[2018-02-24] MEDS ORDERED: LACTULOSE SYRUP 30 GM/45 ML UDP PO STA (01:12)
[2018-02-24] MEDS ORDERED: ACETAMINOPHEN 325 MG TAB PO PRN ×2 (01:15)
[2018-02-24] MEDS ORDERED: NSS + 20MEQ KCL 1000ML 1,000 ML IV SCH ×2 (01:15)
[2018-02-24] MEDS: ONDANSETRON INJ 2 MG/ML 2 ML VIAL IV PRN ×2 (01:17→20:43)
[2018-02-24] MEDS: MoRPHine SULFATE 2 MG/ML CARP IV PRN ×3 (01:17→20:44)
[2018-02-24] MEDS: PIPERACILL/TAZOBAC IV 3.375 GM in NSS 100ML IV SCH ×3 (01:19→16:45)
[2018-02-24] MEDS ORDERED: METHYLNALTREXONE BROMIDE INJ 12 MG/0.6 ML SYR SQ ONE (04:00)
--- NOTE | 2018-02-24 05:18 | HISTORY & PHYSICAL EXAMINATION ---
DATE OF ADMISSION: 02/23/2018 IM ATTENDING : Patient seen and examined. History obtained from the patient and records. Preceding documentation by Ms. Ana Rosa Pimentel PA-C reviewed. FINAL ASSESSMENT AND PLAN as follows, 1. Healthcare associated pneumonia immunocompromised patient. Aspiration risk. No sepsis. 2. Pleuritic chest pain with troponin elevation possible chemotherapy induced cardiotoxicity (myocarditis, vasospasm) 3. Episodic facial swelling Relieved by Benadryl at home Possible hypersensitivity to recent new chemotherapy regimen (FOLFORINOX) for metastatic pancreatic CA 4. hx metastatic pancreatic cancer status post surgery, chemoradiation progression of disease 5. Recent finding of nonocclusive thrombus, L brachiocephalic vein recent initiation of therapeutic Lovenox anticoagulation worsening of chronic abdominal pain, nausea, emesis, constipation Possible opioid induced constipation rule out bowel obstruction, intra-abdominal bleed 6. Anemia. Progressive slow drop in hemoglobin over the last several months Hemoglobin noted to be 9 since last month possibly from chemotherapy, intermittent hemorrhoidal bleed. 7. HTN, stable 8. DM2, on oral meds unknown baseline control 9. COPD, past tobacco abuse. Pulmo status at baseline PLAN: PCU for troponin elevation. Baseline ESR, CRP TTE, Cardio consult RE chest pain, abn troponin ER provider already in touch with Dr. Morse. Kristensyn for HCAP, aspiration risk for now. Swallow eval. Bowel regimen. CT abdomen and pelvis. RE worsening abdominal pain Follow H and H. Anemia workup Appropriate to hold therapeutic Lovenox dosing for now given hemoptysis until hemoglobin stable ISS BG goal 140-180. Check hemoglobin A1c. Level 3 code status, okay with CPR, no intubation. Case discussed with Dr. Olivares ([facility] [place] [facility]) She recommends checking serum tryptase level to test for possible recent hypersensitivity reaction and to initiate Lovenox 40 mg subcutaneous daily for DVT prophylaxis once hemoglobin stable. MTDD
[2018-02-24 05:44] LABS: BASO % 0.1 %; BASO ABS # 0.01 K/uL (0-0.2); EOS % 0.6 %; EOS ABS # 0.04 K/uL (0-0.5); HEMATOCRIT 27.9 % (37-47); HEMOGLOBIN 9.1 g/dL (12.0-16.0); IG# 0.03 K/uL (0.00-0.02); LYMPH % 6.9 %; LYMPH ABS # 0.47 K/uL (1.2-3.4); MEAN CELL VOLUME 74.2 fL (80-100); MEAN CORPUSCULAR HEMOGLOBIN 24.2 pg (25-34); MEAN CORPUSCULAR HGB CONC 32.6 g/dl (32-36); MEAN PLATELET VOLUME 8.8 fL (7.4-10.4); MONO % 1.6 %; MONO ABS # 0.11 K/uL (0.11-0.59); NEUT % 90.4 %; NEUT ABS # 6.11 K/uL (1.4-6.5); PLATELET COUNT 250 K/uL (130-400); RED CELL DISTRIBUTION WIDTH CV 18.1 % (11.5-14.5); RED CELL DISTRIBUTION WIDTH SD 47.9 fL (36.4-46.3); RETIC COUNT % 0.9 % (0.5-2.0); WHITE BLOOD COUNT 6.77 K/uL (4.8-10.8)
[2018-02-24] MEDS: OXYCODONE HCL IR 5 MG TAB (IMMEDIATE RELEASE) PO PRN ×3 (05:50→16:52)
[2018-02-24 06:10] LABS: CREATININE 0.4 mg/dl (0.60-1.20); POTASSIUM 3.8 mmol/L (3.5-5.1)
[2018-02-24 06:48] LABS: HEMOGLOBIN A1C 6.7 % (4.5-5.6)
[2018-02-24] MEDS: GABAPENTIN 800 MG TAB PO SCH ×3 (08:22→20:23)
[2018-02-24] MEDS: LACTOBACILLUS ACIDOPHILUS (FLORANEX) TAB PO SCH ×3 (08:22→16:46)
[2018-02-24] MEDS: INSULIN ASPART 100 UNITS/ML 3 ML PEN SC SCH ×4 (08:23→20:39)
[2018-02-24] MEDS: CHECK FENTANYL PATCH PLACEMENT SCH ×3 (08:23→20:26)
[2018-02-24] MEDS: BACLOFEN 10 MG TAB PO SCH ×3 (08:23→20:21)
[2018-02-24] MEDS: DOCUSATE SODIUM/SENNA 50/8.6MG TAB PO SCH ×2 (08:26→20:22)
[2018-02-24] MEDS ORDERED: PERFLUTREN LIPID MICROSPHERE (DEFINITY) IV ONE (08:31)
--- NOTE | 2018-02-24 08:33 | DIAGNOSTIC IMAGING REPORT ---
CT OF THE ABDOMEN AND PELVIS WITHOUT CONTRAST CLINICAL HISTORY: Left sided abdominal pain, nausea and vomiting. Metastatic pancreatic cancer. COMPARISON STUDY: CT of the abdomen and pelvis June 02, 2017 and MRI of the abdomen June 16, 2017. TECHNIQUE: Axial images of the abdomen and pelvis were obtained without IV contrast. Images were reviewed in the axial, sagittal, and coronal planes. A dose lowering technique was utilized adhering to the principles of ALARA. FINDINGS: Visualized portions of the lower chest demonstrate trace bilateral pleural effusions. A 2.8 cm left lower lobe nodule is suggestive of metastatic disease. 3.8 cm left lower lobe irregular opacity favors pneumonia. No pneumatosis, free air or portal venous gas is present. Innumerable hypodense hepatic masses represent metastatic disease which have developed since MRI of April 20, 2017. These include an 8.1 cm left hepatic lobe lesion. There are findings suggestive of a Whipple procedure. There is no biliary or pancreatic ductal dilatation. Sreekanth stent is in place. There is no hydronephrosis. There is been interval development of a 3.9 cm intermediate attenuation lesion arising from the lower pole of the right kidney. There is a large amount of poorly formed stool within the colon. There is no evidence for a bowel obstruction. There is contrast within the bladder and collecting systems from recent contrast-enhanced chest CT. No lymphadenopathy is noted. No suspicious osseous lesion is noted. Nodularity of both adrenal glands is present. IMPRESSION: 1. Extensive hepatic metastatic disease which has developed since CT of June 02, 2017. 2. 2.8 cm left lower lobe nodule consistent with metastatic disease. 3. 3.8 cm left lower lobe irregular opacity which favors pneumonia. 4. New 3.9 cm lesion arising from the lower pole the right kidney. This is indeterminate although metastatic disease is favored given the history. 5. Status post Whipple. Biliary stent in place. No biliary ductal dilatation. 6. Moderate to large amount of poorly formed stool within the colon. No bowel obstruction. Electronically signed by: Chris Taveras M.D. 02/24/2018 8:32 AM Dictated Date/Time: 02/24/2018 7:49 AM
[2018-02-24] MEDS ORDERED: FENTANYL 25 MCG/HR TDSY TD SCH ×2 (09:00)
[2018-02-24] MEDS ORDERED: AMLODIPINE BESYLATE 5 MG TAB PO SCH (09:00)
[2018-02-24] MEDS ORDERED: ENOXAPARIN 40 MG/0.4 ML SYR SQ SCH (09:00)
[2018-02-24] MEDS ORDERED: VANCOMYCIN CONSULT ACTIVE PRN (12:22)
[2018-02-24] MEDS ORDERED: ENOXAPARIN 60 MG/0.6 ML SYR SQ ONE (12:30)
[2018-02-24 12:45] LABS: HEMATOCRIT 28.3 % (37-47); HEMOGLOBIN 9.1 g/dL (12.0-16.0)
[2018-02-24] MEDS ORDERED: VANCOMYCIN IV 2,250 MG in SODIUM CHLORIDE 0.9% 500ML 500 ML IV ONE (13:00)
--- NOTE | 2018-02-24 13:09 | Progress Note ---
Medicine Progress Note Date & Time of Visit: February 24, 2018 at 12:07. Subjective 48 yo F with known metastatic pancreatic cancer and a known L apical lung mass who reports presenting to the hospital for squeezing chest pain that was taking her breath away. The pain began yesterday and is positional. It was associated with significant shortness of breath and was reported to be worse with lying flat, better with leaning forward. She has a h/o cardiac catheterization 7 years ago that revealed nonobstructive disease and has no h/o stent. She denies any h/o chest pain like this in the past. Trop have decayed overnight. Pt still reports having some chest pain that is a 2/10 but is much less intense than yesterday. She received morphine yesterday but reports that this didn't help her pain; no nitro was given. She reports coughing for the last 7 days and states that she only noticed trace amounts of blood-tinged sputum yesterday. She denies gross hemoptysis. She is taking full dose Lovenox at home for a DVT, which was backed down on admission to [facility] 40 daily. She denies any other issues with bleeding or bruising. She reports that since she received FolFox chemo on 02/21, she has noticed full face swelling. Contrast -enhanced CT scan of the chest yesterday did not identify any blockage in the SVC or PE. Objective Last 8 Hrs Date Time Temp Pulse Resp B/P (MAP) Pulse Ox O2 Delivery O2 Flow Rate FiO2 02/24/18 11:15 36.7 70 20 119/66 (83) 96 Nasal Cannula 2.0 02/24/18 08:00 Nasal Cannula 2.0 02/24/18 07:00 37.1 82 16 104/69 (81) 93 Nasal Cannula 2.0 Physical Exam: GEN: WNWD, in no acute distress, alert and appropriate, no facial swelling was noted. HEENT: NC/AT, normal sclerae, MM are dry CARDIO: reg rate, S1/2 heard without m/g/r, no JVD was seen. No collateral vessel enlargement seen on chest wall. LUNGS: CTA bilaterally, no crackles, rales or wheezes, good diaphragmatic excursion ABD: soft, TTP diffusely, non-distended, no rebound or guarding, +BS EXTREMITY: RP and DP palpable 2+ bilat, no LE swelling or edema, extremities are warm and well-perfused NEURO: CN 2-12 grossly intact, no gross focal deficits. MUSC: 5/5 strength throughout, no gross focal deficits SKIN: warm and dry Laboratory Results: 02/24/18 05:11 Red Blood Count 3.76, Mean Corpuscular Volume 74.2, Mean Corpuscular Hemoglobin 24.2, Mean Corpuscular Hemoglobin Concent 32.6, Mean Platelet Volume 8.8, Neutrophils (%) (Auto) 90.4, Lymphocytes (%) (Auto) 6.9, Monocytes (%) (Auto) 1.6, Eosinophils (%) (Auto) 0.6, Basophils (%) (Auto) 0.1, Neutrophils # (Auto) 6.11, Lymphocytes # (Auto) 0.47, Monocytes # (Auto) 0.11, Eosinophils # (Auto) 0.04, Basophils # (Auto) 0.01 02/24/18 12:27 02/24/18 05:11 Test 02/23/18 18:45 02/23/18 22:28 02/24/18 05:11 02/24/18 11:32 Prothrombin Time 15.1 SECONDS (9.0-12.0) Prothromb Time International Ratio 1.4 (0.9-1.1) Activated Partial Thromboplast Time 32.6 SECONDS (21.0-31.0) Partial Thromboplastin Ratio 1.3 Estimated Average Glucose 146 mg/dl Hemoglobin A1c 6.7 % (4.5-5.6) Magnesium Level 1.8 mg/dl (1.8-2.4) Total Bilirubin 0.7 mg/dl (0.2-1) Aspartate Amino Transf (AST/SGOT) 102 U/L (15-37) Alanine Aminotransferase (ALT/SGPT) 51 U/L (12-78) Alkaline Phosphatase 333 U/L (45-117) Total Protein 6.9 gm/dl (6.4-8.2) Albumin 2.2 gm/dl (3.4-5.0) Globulin 4.7 gm/dl (2.5-4.0) Albumin/Globulin Ratio 0.5 (0.9-2) Lipase 26 U/L (73-393) Thyroid Stimulating Hormone (TSH) 2.460 uIu/ml (0.300-4.500) Erythrocyte Sedimentation Rate 66 mm/hr (0-21) C-Reactive Protein 14.70 mg/dl (0-0.29) White Blood Count 6.77 K/uL (4.8-10.8) Red Blood Count 3.76 M/uL (4.2-5.4) Hemoglobin 9.1 g/dL (12.0-16.0) Hematocrit 27.9 % (37-47) Mean Corpuscular Volume 74.2 fL (80-100) Mean Corpuscular Hemoglobin 24.2 pg (25-34) Mean Corpuscular Hemoglobin Concent 32.6 g/dl (32-36) Platelet Count 250 K/uL (130-400) Mean Platelet Volume 8.8 fL (7.4-10.4) Neutrophils (%) (Auto) 90.4 % Lymphocytes (%) (Auto) 6.9 % Monocytes (%) (Auto) 1.6 % Eosinophils (%) (Auto) 0.6 % Basophils (%) (Auto) 0.1 % Neutrophils # (Auto) 6.11 K/uL (1.4-6.5) Lymphocytes # (Auto) 0.47 K/uL (1.2-3.4) Monocytes # (Auto) 0.11 K/uL (0.11-0.59) Eosinophils # (Auto) 0.04 K/uL (0-0.5) Basophils # (Auto) 0.01 K/uL (0-0.2) RDW Standard Deviation 47.9 fL (36.4-46.3) RDW Coefficient of Variation 18.1 % (11.5-14.5) Immature Granulocyte % (Auto) 0.4 % Immature Granulocyte # (Auto) 0.03 K/uL (0.00-0.02) Absolute Reticulocyte Count 0.03 10^6/uL (0.02-0.10) Percent Reticulocyte Count 0.9 % (0.5-2.0) Anion Gap 6.0 mmol/L (3-11) Est Creatinine Clear Calc Drug Dose 189.0 ml/min Estimated GFR () 142.8 Estimated GFR (Non- 123.2 BUN/Creatinine Ratio 29.9 (10-20) Calcium Level 8.0 mg/dl (8.5-10.1) Iron Level 84 mcg/dl (35-150) Total Iron Binding Capacity 210 mcg/dl (250-450) Transferrin 187 mg/dl (200-360) Transferrin % Saturation 32 % (15-50) Ferritin 511.8 ng/ml (8.0-388.0) Total Creatine Kinase 200 U/L (26-192) Troponin I 3.540 ng/ml (0-0.045) Vitamin B12 Level 1143 pg/mL (211-911) Folate > 24.00 ng/mL (>5.38) Bedside Glucose 138 mg/dl (70-90) Test 02/24/18 12:27 Date/Time Source Procedure Growth Status 02/23/18 19:08 Blood Blood Culture Pending Received 02/24/18 11:30 Nasal MRSA DNA Surveillance Screen Pending Received Last 24 Hours Test 02/23/18 18:45 02/23/18 22:28 02/24/18 05:11 02/24/18 11:32 White Blood Count 8.28 K/uL 6.77 K/uL Red Blood Count 3.92 M/uL 3.76 M/uL Hemoglobin 9.5 g/dL 9.1 g/dL Hematocrit 29.4 % 27.9 % Mean Corpuscular Volume 75.0 fL 74.2 fL Mean Corpuscular Hemoglobin 24.2 pg 24.2 pg Mean Corpuscular Hemoglobin Concent 32.3 g/dl 32.6 g/dl Platelet Count 247 K/uL 250 K/uL Mean Platelet Volume 8.8 fL 8.8 fL Neutrophils (%) (Auto) 90.2 % 90.4 % Lymphocytes (%) (Auto) 7.0 % 6.9 % Monocytes (%) (Auto) 2.1 % 1.6 % Eosinophils (%) (Auto) 0.5 % 0.6 % Basophils (%) (Auto) 0.0 % 0.1 % Neutrophils # (Auto) 7.47 K/uL 6.11 K/uL Lymphocytes # (Auto) 0.58 K/uL 0.47 K/uL Monocytes # (Auto) 0.17 K/uL 0.11 K/uL Eosinophils # (Auto) 0.04 K/uL 0.04 K/uL Basophils # (Auto) 0.00 K/uL 0.01 K/uL RDW Standard Deviation 48.0 fL 47.9 fL RDW Coefficient of Variation 18.0 % 18.1 % Immature Granulocyte % (Auto) 0.2 % 0.4 % Immature Granulocyte # (Auto) 0.02 K/uL 0.03 K/uL Prothrombin Time 15.1 SECONDS Prothromb Time International Ratio 1.4 Activated Partial Thromboplast Time 32.6 SECONDS Partial Thromboplastin Ratio 1.3 Sodium Level 131 mmol/L 132 mmol/L Potassium Level 3.9 mmol/L 3.8 mmol/L Chloride Level 101 mmol/L 101 mmol/L Carbon Dioxide Level 27 mmol/L 25 mmol/L Anion Gap 3.0 mmol/L 6.0 mmol/L Blood Urea Nitrogen 14 mg/dl 12 mg/dl Creatinine 0.49 mg/dl 0.40 mg/dl Est Creatinine Clear Calc Drug Dose 148.2 ml/min 189.0 ml/min Estimated GFR () 133.5 142.8 Estimated GFR (Non- 115.2 123.2 BUN/Creatinine Ratio 28.3 29.9 Random Glucose 121 mg/dl 127 mg/dl Estimated Average Glucose 146 mg/dl Hemoglobin A1c 6.7 % Calcium Level 8.3 mg/dl 8.0 mg/dl Magnesium Level 1.8 mg/dl Total Bilirubin 0.7 mg/dl Aspartate Amino Transf (AST/SGOT) 102 U/L Alanine Aminotransferase (ALT/SGPT) 51 U/L Alkaline Phosphatase 333 U/L Troponin I 4.680 ng/ml 4.500 ng/ml 3.540 ng/ml Total Protein 6.9 gm/dl Albumin 2.2 gm/dl Globulin 4.7 gm/dl Albumin/Globulin Ratio 0.5 Lipase 26 U/L Thyroid Stimulating Hormone (TSH) 2.460 uIu/ml Erythrocyte Sedimentation Rate 66 mm/hr Total Creatine Kinase 259 U/L 200 U/L C-Reactive Protein 14.70 mg/dl Absolute Reticulocyte Count 0.03 10^6/uL Percent Reticulocyte Count 0.9 % Iron Level 84 mcg/dl Total Iron Binding Capacity 210 mcg/dl Transferrin 187 mg/dl Transferrin % Saturation 32 % Ferritin 511.8 ng/ml Vitamin B12 Level 1143 pg/mL Folate > 24.00 ng/mL Bedside Glucose 138 mg/dl Test 02/24/18 12:00 Date/Time Source Procedure Growth Status 02/23/18 19:08 Blood Blood Culture Pending Received 02/23/18 18:45 Blood Blood Culture Pending Received 02/24/18 11:30 Nasal MRSA DNA Surveillance Screen Pending Received Assessment & Plan 48 yo F with known metastatic pancreatic cancer and a known L apical lung mass who reports presenting to the hospital for squeezing chest pain that was taking her breath away. The pain began yesterday and is positional. It was associated with significant shortness of breath and was reported to be worse with lying flat, better with leaning forward. She has a h/o cardiac catheterization 7 years ago that revealed nonobstructive disease and has no h/o stent. She denies any h/o chest pain like this in the past. Trop have decayed overnight. Pt still reports having some chest pain that is a 2/10 but is much less intense than yesterday. She received morphine yesterday but reports that this didn't help her pain; no nitro was given. She reports coughing for the last 7 days and states that she only noticed trace amounts of blood-tinged sputum yesterday. She denies gross hemoptysis. She is taking full dose Lovenox at home for a DVT, which was backed down on admission to [facility] daily. She denies any other issues with bleeding or bruising. She reports that since she received FolFox chemo on 02/21, she has noticed full face swelling. Contrast -enhanced CT scan of the chest yesterday did not identify any blockage in the SVC or PE. 1. Chest pain-differential includes but is not limited to pericarditis, myocarditis or a combined perimyocarditis (likely the case with elevated markers ), acute WA, heart strain 2/2 demand ischemia. She did not have a pericardial friction rub, JVD and is hemodynamically stable. Cardiology is consulted so awaiting recommendations. She is on full dose Lovenox for a h/o brachiocephalic VV clot. She does have a h/o nonobstructive CAD in the past. Chest pain was acute, sharp and positional and EKG this morning reveals some ST elevation in V2 which is a change from yesterday. TTE ordered, awaiting Cards recs. 2. HCAP-no evidence of sepsis, denies fevers or chills. Poss aspiration wtih vomiting yesterday which was associated with chest pain. She is covered wtih Zosyn empirically, but will also add Vancomycin. 3. Facial swelling -x 4 days, related to position so is likely structural. Discussed the CT scan of the chest with radiology who states there are collateral vessels around the L brachiocephalic vein (known h/o clot in this area) and it also looks like there is some reflux of contrast mehran the L IJ. Both vessels may be contributing to her swelling if there is clot/debris still present. No collateral veins are seen on chest, and SVC is clear on scan. Will order a bilateral upper extremity duplex with a view into the L IJ, also to better understand what is going on. She was put back on her full dose Lovenox as she is not bleeding and only has scant blood-tinged sputum, not hemoptysis. 4. Hypoxia-related to pneumonia. Cont supplemental oxygen and treatment as above. 5. Metastatic pancreatic cancer-s/p whipple in 2017 at [facility], multiple chemo regimens in the past. dollows with Dr. Olivares for Oncology. Currently on Folfox which she started on 02/21. 6. Chronic pain related to cancer-cont FEntanyl patch. Pt reports being at her baseline pain at this time. 7. Opioid-induced constipation-reversed with RElistor overnight. 8. Anemia-chronic, likely related to BM suppression from chemo and ACD from cancer. 9. DMII-ISS/glargine while inpatient. Advanced diet this morning per her request. DVT Ppx: SQ lovenox Code status: FULL, per discussion with patient. Note, she is a LEVEL 1, not a LEVEL 3. PCP: Pamela Dispo: Plan to return home once medically stable. Marilyn Garcia DO [facility] Hospitalist Consultants: Cardiology-Dr. Morse Current Inpatient Medications: Current Inpatient Medications Medications (Trade) Dose Ordered Sig/Kalen Route Start Time Stop Time Status Last Admin Dose Admin Ioversol (Optiray 320) 100 ml UD PRN IV 02/23/18 18:30 02/27/18 18:29 Insulin Aspart (novoLOG ASPART) SLIDING SCALE If C... ACHS SC 02/24/18 07:00 03/26/18 06:59 02/24/18 12:01 2 UNITS Glucose (Glucose 40% Gel) 15-30 GRAMS 15 GRAMS... UD PRN PO 02/24/18 00:00 03/26/18 00:00 Glucose (Glucose Chew Tab) 4-8 Tablets 4 Tabl... UD PRN PO 02/24/18 00:00 03/26/18 00:00 Dextrose (Dextrose 50% 50ML Syringe) 25-50ML 25ML FOR ... UD PRN IV 02/24/18 00:00 03/26/18 00:00 Glucagon (Glucagon Inj) 1 mg UD PRN SQ 02/24/18 00:00 03/26/18 00:00 Carbohydrates (Carbohydrates For Hypoglycemia) 15-30 GRAMS 15 grams if BSG 54-69... UD PRN PO 02/24/18 00:00 03/26/18 00:00 Prochlorperazine Edisylate 5 mg/ Syringe 5 ml @ 5 mls/min Q6H PRN IV 02/24/18 00:00 03/26/18 00:00 02/24/18 03:56 5 MLS/MIN Morphine Sulfate (MoRPHine SULFATE INJ) 4 mg Q3H PRN IV 02/24/18 00:00 03/10/18 00:00 02/24/18 04:23 4 MG Senna/Docusate Sodium (Senokot S Tab) 1 tab BID PO 02/24/18 09:00 03/26/18 08:59 02/24/18 08:26 1 TAB Polyethylene (Miralax Powder Packet) 17 gm DAILY PRN PO 02/24/18 00:00 03/26/18 00:00 Amlodipine Besylate (Norvasc Tab) 10 mg DAILY PO 02/24/18 09:00 03/26/18 08:59 02/24/18 08:22 10 MG Baclofen (Lioresal Tab) 10 mg TID PO 02/24/18 09:00 03/26/18 08:59 02/24/18 08:23 10 MG Gabapentin (Neurontin Tab) 800 mg TID PO 02/24/18 09:00 03/26/18 08:59 02/24/18 08:22 800 MG Losartan Potassium (coZAAR TAB) 50 mg QPM PO 02/24/18 21:00 03/26/18 20:59 Nortriptyline HCl (Pamelor Cap) 10 mg HS PO 02/24/18 21:00 03/26/18 20:59 Sertraline HCl (Zoloft Tab) 200 mg HS PO 02/24/18 21:00 03/26/18 20:59 Miscellaneous Information (Consult) 1 ea UD PRN N/A 02/24/18 00:30 03/26/18 00:29 Ondansetron HCl (Zofran Inj) 4 mg Q6H PRN IV 02/24/18 00:00 03/26/18 00:00 02/24/18 01:17 4 MG Albuterol/ Ipratropium (Duoneb) 3 ml Q2H PRN INH 02/24/18 00:00 03/26/18 00:00 Piperacillin Sod/ Tazobactam Sod 3.375 gm/Sodium Chloride 115 ml @ 28.75 mls/ hr Q8H IV 02/24/18 01:00 03/03/18 00:59 02/24/18 08:24 28.75 MLS/HR Acetaminophen (Tylenol Tab) 325 mg Q6H PRN PO 02/24/18 01:15 03/26/18 00:00 Miscellaneous Information (Check Fentanyl Patch Placement) 1 ea QS N/A 02/24/18 08:00 03/26/18 07:59 02/24/18 08:23 1 EA Lactobacillus Acidophilus (Floranex Tab) 4 tab TIDM PO 02/24/18 07:30 03/26/18 07:29 02/24/18 12:00 4 TAB Oxycodone HCl (Roxicodone Immediate Rel Tab) 30 mg Q4H PRN PO 02/24/18 05:45 03/10/18 05:44 02/24/18 10:07 30 MG Enoxaparin Sodium (Lovenox Inj) 40 mg DAILY SQ 02/24/18 09:00 03/26/18 08:59 02/24/18 08:19 40 MG Fentanyl (Duragesic Patch) 25 mcg Q3D TD 02/26/18 09:00 03/12/18 08:59 Miscellaneous (Fentanyl Patch Remove & Waste) 1 ea Q3D N/A 02/26/18 09:00 03/28/18 08:59
--- NOTE | 2018-02-24 13:59 | Pharmacy Progress Note ---
Pharmacy Abx Initial Consult Date of Service February 24, 2018. Pharmacy Dosing Scope Date of Consult: 02/24/18 Consultation requested by: Dr. Garcia Pharmacy is consulted to initiate Vancomycin/Zosyn IV dosing therapy, order appropriate labs and adjust drug dose/frequency. Subjective The patient is a 48 year old female admitted on February 23, 2018 at 22:39 CT chest in ED showed pneumonia Objective Height (Feet): 5 Height (Inches): 5.00 Weight (Kilograms): 88.500 (BMI 32.5) Vital Signs (Past 12Hrs) Vital Signs Past 12 Hours Date Time Temp Pulse Resp B/P (MAP) Pulse Ox O2 Delivery O2 Flow Rate FiO2 02/24/18 12:00 Nasal Cannula 2.0 02/24/18 11:15 36.7 70 20 119/66 (83) 96 Nasal Cannula 2.0 02/24/18 08:00 Nasal Cannula 2.0 02/24/18 07:00 37.1 82 16 104/69 (81) 93 Nasal Cannula 2.0 02/24/18 04:00 95 Nasal Cannula 4.0 02/24/18 03:45 36.8 80 15 123/78 (93) 95 Nasal Cannula 4.0 Lab Results (24Hrs) Laboratory Tests (24 Hours) Test 02/23/18 22:28 02/24/18 05:11 C-Reactive Protein 14.70 mg/dl (0-0.29) H Erythrocyte Sedimentation Rate 66 mm/hr (0-21) H White Blood Count 6.77 K/uL (4.8-10.8) Red Blood Count 3.76 M/uL (4.2-5.4) L Hemoglobin 9.1 g/dL (12.0-16.0) L Hematocrit 27.9 % (37-47) L Mean Corpuscular Volume 74.2 fL (80-100) L Mean Corpuscular Hemoglobin 24.2 pg (25-34) L Mean Corpuscular Hemoglobin Concent 32.6 g/dl (32-36) Platelet Count 250 K/uL (130-400) Mean Platelet Volume 8.8 fL (7.4-10.4) Neutrophils (%) (Auto) 90.4 % Lymphocytes (%) (Auto) 6.9 % Monocytes (%) (Auto) 1.6 % Eosinophils (%) (Auto) 0.6 % Basophils (%) (Auto) 0.1 % Neutrophils # (Auto) 6.11 K/uL (1.4-6.5) Lymphocytes # (Auto) 0.47 K/uL (1.2-3.4) L Monocytes # (Auto) 0.11 K/uL (0.11-0.59) Eosinophils # (Auto) 0.04 K/uL (0-0.5) Basophils # (Auto) 0.01 K/uL (0-0.2) Total Creatine Kinase 200 U/L (26-192) H Micro Results Date/Time Source Procedure Growth Status 02/23/18 19:08 Blood Blood Culture Pending Received 02/23/18 18:45 Blood Blood Culture Pending Received 02/24/18 11:30 Nasal MRSA DNA Surveillance Screen Pending Received Risk Factors for Resistance * Immunocompromised (chemotherapy):metastatic pancreatic CA Assessment & Plan Assessment 48 year old female for pneumonia confirmed with CT chest. Pertinent PMH: Diabetes,COPD,Immunocompromised,Metastatic pancreatic CA Plan Vancomycin IV * Est. PK paramters: Vd 0.61 L/kg; Venkata ~0.104 hr-1; T1/2 ~6.7 hr; CrCl >120 * Loading dose: 2250 mg (~25 mg/kg) * Maintenance dose: 1250 mg IV (~14 mg/kg) every 8 hours * Goal trough level for indication : 15 to 20 mcg/mL * Trough level ordered for 02/25/18 @ 1130 * Piperacillin/tazobactam * 4.5 g bolus administered over 30 minutes, then 3.375 g IV extended infusion every 8 hours for CrCl greater than 20 mL/min OR every 12 hours for CrCl 20 mL/ min or less and dialysis. (started 02/23/18 in ED ~1915) * Aggressive dosing selected due to critically ill status Pharmacy will continue to follow and will adjust dose/frequency as necessary. Thank you.
--- NOTE | 2018-02-24 15:00 | DIAGNOSTIC IMAGING REPORT ---
ULTRASOUND BILATERAL UPPER EXTREMITY VENOUS CLINICAL HISTORY: Left neck swelling. COMPARISON STUDY: Left upper extremity venous ultrasound dated 02/18/2018. TECHNIQUE: Real-time, grayscale, and color Doppler sonography of the deep veins of the right and left upper extremity is performed. Compression and augmentation were utilized. FINDINGS: Right upper extremity: There is no sonographic evidence of deep venous thrombosis identified in the right upper extremity. The right internal jugular, axillary, and brachial veins are patent and normally compressible. Normal venous waveforms and augmentation are seen within the right subclavian vein. The cephalic and basilic veins are clear. The visualized radial and ulnar veins are patent. Left upper extremity: There is acute appearing and nearly occlusive deep venous thrombosis identified in the left internal jugular vein. This does not appear to extend into the innominate vein. The remaining deep veins of the left upper extremity. Clear. The axillary and brachial veins are patent and normally compressible. Normal venous waveforms and augmentation are seen within the left subclavian vein. The cephalic and basilic veins are clear. The visualized radial and ulnar veins are patent. IMPRESSION: 1. There is acute appearing and nearly occlusive deep venous thrombosis identified in the left internal jugular vein. 2. The remaining deep veins of the left upper extremity appear clear. 3. There is no sonographic evidence of deep venous thrombosis identified in the right upper extremity. Electronically signed by: Medardo Walker M.D. 02/24/2018 2:59 PM Dictated Date/Time: 02/24/2018 2:56 PM
--- NOTE | 2018-02-24 15:17 | ECHOCARDIOGRAM REPORT ---
*NOTICE TO RECEIVING [employer] This information is strictly Confidential and protected under [place] law. [place] law prohibits you from making any further disclosure of this information unless further disclosure is expressly permitted by the written consent of the person to whom it pertains or is authorized by law. A general authorization for the release of medical or other information is not sufficient for this purpose. Hospital accepts no responsibility if the information is made available to any other person, INCLUDING THE PATIENT. Interpretation Summary * Name: ADRIANNA HUTCHINSON Study Date: 02/24/2018 07:45 AM BP: 104/69 mmHg * Patient Location: C.2E\S\E203\S\1 HR: 74 * : 1970 (M/d/yyyy) Gender: Female Height: 65 in * Age: 48 yrs Ethnicity: CA Weight: 180 lb * Ordering Physician: Keaton Leon * Referring Physician: Self, Referred * Performed By: Elena Zepeda RDCS * * Reason For Study: CHEST PAIN * BSA: 1.9 m2 * -- Conclusions -- * The left ventricle is normal in size. * There is mild concentric left ventricular hypertrophy. * Focal thickening of the basal septum with no evidence of left ventricular outflow obstruction. * There is severe hypokinesis to akinesis of the mid and apical segments with mild expansion, basilar wall segments tanvi normally * Ejection Fraction = 30-35%. Procedure Details * A contrast injection of Definity was performed to improve assessment of LV function. * Contrast was injected into an intravenous site in the left arm. * One vial of Definity ultrasound contrast was diluted in normal saline to a total volume of 10 ml. A total of '2' ml of solution was administered during imaging. * Lot # [id number] of Definity utilized for procedure. * Expiration date DEC 13. * The attending nurse who injected the contrast agent was DANAY HICKS RN. * A complete two-dimensional transthoracic echocardiogram was performed (2D, M-mode, Doppler and color flow Doppler). Left Ventricle * The left ventricle is normal in size. * There is mild concentric left ventricular hypertrophy. * Focal thickening of the basal septum with no evidence of left ventricular outflow obstruction. * Ejection Fraction = 30-35%. * There is severe hypokinesis to akinesis of the mid and apical segments with mild expansion, basilar wall segments tanvi normally Right Ventricle * The right ventricle is normal in size and function. Atria * The left atrium is moderately dilated. * Right atrial size is normal. * No ASD detected; PFO is not assessed. Mitral Valve * There is mild mitral annular calcification. * There is no mitral valve stenosis. * There is trace mitral regurgitation. Tricuspid Valve * The tricuspid valve anatomy is normal. * There is no tricuspid stenosis. * There is trace tricuspid regurgitation. Aortic Valve * The aortic valve is trileaflet. * No hemodynamically significant valvular aortic stenosis. * No aortic regurgitation is present. Pulmonic Valve * The pulmonic valve is not well visualized. Great Vessels * The aortic root is normal size. Pericardium/Pleural * There is no pericardial effusion. * Moderate size left pleural effusion. Great Vessels * The inferior vena cava is mildly dilated. MMode 2D Measurements and Calculations IVSd 1.2 cm IVSs 1.6 cm LVIDd 5.1 cm LVIDs 3.8 cm LVPWd 1.4 cm LVPWs 1.8 cm IVS/LVPW 0.91 FS 25.7 % EDV(Teich) 123.0 ml ESV(Teich) 61.0 ml EF(Teich) 50.4 % EDV(cubed) 131.5 ml ESV(cubed) 53.8 ml EF(cubed) 59.0 % % IVS thick 28.6 % % LVPW thick 33.2 % LV mass(C)d 271.2 grams LV mass(C)dI 143.4 grams/m\S\2 LV mass(C)s 266.8 grams LV mass(C)sI 141.1 grams/m\S\2 SV(Teich) 61.9 ml SI(Teich) 32.7 ml/m\S\2 SV(cubed) 77.6 ml SI(cubed) 41.0 ml/m\S\2 Ao root diam 3.8 cm Ao root area 11.2 cm\S\2 LA dimension 4.5 cm LA/Ao 1.2 LVAd ap4 43.9 cm\S\2 LVLd ap4 9.0 cm EDV(MOD-sp4) 176.4 ml EDV(sp4-el) 182.3 ml LVAs ap4 32.1 cm\S\2 LVLs ap4 7.6 cm ESV(MOD-sp4) 108.9 ml ESV(sp4-el) 115.2 ml EF(MOD-sp4) 38.2 % EF(sp4-el) 36.8 % LVAd ap2 48.9 cm\S\2 LVLd ap2 9.2 cm EDV(MOD-sp2) 215.4 ml EDV(sp2-el) 221.2 ml LVAs ap2 36.7 cm\S\2 LVLs ap2 8.1 cm ESV(MOD-sp2) 134.0 ml ESV(sp2-el) 141.1 ml EF(MOD-sp2) 37.8 % EF(sp2-el) 36.2 % LVLd %diff 2.2 % EDV(MOD-bp) 197.6 ml LVLs %diff 6.3 % ESV(MOD-bp) 124.9 ml EF(MOD-bp) 36.8 % SV(MOD-sp4) 67.4 ml SI(MOD-sp4) 35.7 ml/m\S\2 SV(MOD-sp2) 81.4 ml SI(MOD-sp2) 43.0 ml/m\S\2 SV(MOD-bp) 72.7 ml SI(MOD-bp) 38.4 ml/m\S\2 SV(sp4-el) 67.1 ml SI(sp4-el) 35.5 ml/m\S\2 SV(sp2-el) 80.1 ml SI(sp2-el) 42.3 ml/m\S\2 Doppler Measurements and Calculations MV E max amaris 121.3 cm/sec MV A max amaris 103.0 cm/sec MV E/A 1.2 MV dec time 0.27 sec Ao V2 max 174.4 cm/sec Ao max PG 12.2 mmHg Ao max PG (full) 4.5 mmHg LV V1 max PG 7.6 mmHg LV V1 max 138.0 cm/sec TR max amaris 230.7 cm/sec
[2018-02-24] MEDS: VANCOMYCIN IV 1,250 MG in SODIUM CHLORIDE 0.9% 250ML 250 ML IV SCH (20:20)
[2018-02-24] MEDS: ENOXAPARIN 100 MG/1ML SYR SQ SCH (20:24)
--- NOTE | 2018-02-24 20:38 | CARDIOLOGY CONSULTATION ---
DATE OF CONSULTATION: 02/24/2018 REFERRING PHYSICIAN: Marilyn Garcia DO. INDICATIONS: Elevated troponin. HISTORY OF PRESENT ILLNESS: The patient is a complex 48-year-old female whose history is notable for hypertension, hypertrophic cardiomyopathy, mild concentric by past history, history of past deep venous thrombosis and pulmonary embolus, type 2 diabetes mellitus, currently being managed for several months history of metastatic pancreatic carcinoma. The patient has had recent difficulties predominantly with arm pain, neck pain, facial flushing, and fullness with swelling. She presented for symptoms noted above. She did note some pressure pain and dyspnea in certain positions, especially when lying flat. She had an episode of extended pain across her chest for several days. She is seen now under evaluation after ER presentation that demonstrated elevated troponin. She has no prior history of angina or myocardial infarction. She does carry a familial history of hypertrophic cardiomyopathy, not revealed in past outpatient echocardiograms on patient. She notes no recent fevers or chills, notes no productive cough. Notes has been participating in chemotherapy regimen as well as chronic anticoagulation. ALLERGIES: EGGS, HYDROCHLOROTHIAZIDE, PREGABALIN, SIMETHICONE. MEDICATIONS: Prior to hospitalization were amlodipine 10 mg p.o. daily, Lioresal 10 mg t.i.d., Lomotil p.r.n., Lovenox 80 subcu q.12, fentanyl 25 mcg patch, furosemide 40 mg b.i.d. p.r.n., gabapentin 800 mg t.i.d., glipizide 5 mg daily, losartan 50 mg q.p.m., nortriptyline 10/20 at bedtime, metformin 850 b.i.d., potassium chloride 10 mEq b.i.d. with furosemide, Zoloft 200 mg p.o. daily, spironolactone 25 mg p.o. daily p.r.n. leg swelling. PAST SURGICAL HISTORY: Notable for prior remote hysterectomy, partial Whipple procedure in October 2016, past cholecystectomy. FAMILY HISTORY: As noted above, notable for possible hypertrophic cardiomyopathy in family. SOCIAL HISTORY: The patient is a prior smoker, nonsmoker currently, uses no significant alcoholic beverages. PHYSICAL EXAMINATION: GENERAL: The patient is a chronically ill appearing female but in no acute distress currently. VITAL SIGNS: Heart rate is 70, blood pressures 90/64. HEENT: Normocephalic, atraumatic. Left-sided face is full. There are no carotid bruits. RESPIRATORY: Lungs reveal diminished breath sounds, basilar. CARDIOVASCULAR: Regular, with distant heart sounds and a grade 1/6 systolic murmur, there is no diastolic murmur. ABDOMEN: Soft, mild distention. EXTREMITIES: Reveal trace to 1+ lower extremity edema. NEUROLOGIC: The patient is answering questions appropriately. LABORATORY DATA: Hemoglobin is 9.1, hematocrit is 28.3. Sodium is 132, potassium is 3.8, chloride is 101, bicarbonate is 25, BUN is 12, creatinine is 0.4. CK is elevated at 200s. Troponin I since admission demonstrated persistent elevation at 4.6, 4.5, and 3.5. EKG reveals sinus rhythm, with Q-waves inferiorly and anteriorly, with septal Q-wave findings old. Echocardiogram performed today demonstrates severe hypokinesis to akinesis, mid and apical left ventricle, with only basilar segments tanvi. EF 30%-35%. There is mild expansion of the apical segments. There is no significant valvular disease. IVC is dilated. The tricuspid valve regurgitant velocity did not suggest pulmonary hypertension. CT scan of the chest on presentation demonstrated no evidence of pulmonary embolus, possible infiltrate is noted in both lung bases as well as apical mass. Upper extremity ultrasound demonstrated occlusive deep venous thrombosis in the left internal jugular vein. IMPRESSION: A 48-year-old female with complex history presents now with a history of metastatic pancreatic carcinoma, with elevated troponin on acute presentation, with presentation lead by IJ venous thrombosis. Echocardiogram, however, suggests possible Takotsubo type cardiomyopathy versus underlying ischemic heart disease. Plan will be to optimize medical therapy given underlying morbidities. Will reduce losartan and amlodipine, add in low dose beta du as blood pressure and heart rate allow. We will follow.
[2018-02-24] MEDS ORDERED: LORAZEPAM 0.5 MG TAB PO ONE (20:45)
[2018-02-24] MEDS ORDERED: NORTRIPTYLINE HCL 10 MG CAP PO SCH (21:00)
[2018-02-24] MEDS ORDERED: SERTRALINE HCL 100 MG TAB PO SCH (21:00)
[2018-02-24] MEDS ORDERED: LOSARTAN POTASSIUM 50 MG TAB PO SCH ×2 (21:00)
--- NOTE | 2018-02-24 21:47 | Medical Consult ---
Consultation Date of Consultation: February 24, 2018. Attending Physician: Marilyn Garcia DO Reason for Consultation: pancreatic cancer History of Present Illness 48 year old female with pancreatic cancer s/p Whipples and adjuvant chemotherapy with gemcitabine and capecitabine and radiation therapy. She has elevated CA19-[address] scan showing multiple liver mets and large left apical mass. She was planned for GI follow up with Dr Celaya for EUS guided biopsy. She delayed the biopsy and chemo treatment due to an insurance issue She was started on lovenox last Wednesday due to concern for a thrombus on the left brachiocephalic on CT scan She was started on FOLFIRINOX on 02/21/18 for metastatic pancreatic cancer. She was sent to ER on Wednesday for complaint of facial swelling bilaterally but she did not go to ER at that time. She was called yesterday and was sent to ER for evaluation of facial swelling. She did not go immediately at that time. She states that she took benadryl Facial swelling improved. She states that her tongue felt sore and swollen and also had some hoarseness. She states that she also developed chest tightness She has a cough, and states that she had small streak of blood in sputum yesterday. She also had constipation but states that it has resolved. She has nausea but no vomiting She has abdominal pain, right sided. She states that overall she is feeling improved. Does not feel any chest tightness at this time CT scan showed no PE in main lobar or segmental arteries cardiomegaly and advanced emphysema with evidence of pulmonary hypertension dependent airspace consolidation at both lung bases, with patchy consolidative change throughout NIKKIE, appearance suggest pneumonia trace left pleural effusion large mass lesion at paramediastinal left apex with numerus additional (at least 15) pulmonary lesions - see official report the appearance is consistent with metastatic disease evidence of multifocal hepatic metastatic disease Echo : EF 30 to 35% Past Medical/Surgical History Medical Problems: (1) Anemia Status: Chronic (2) Elevated troponin Status: Acute (3) Pneumonia Status: Acute (4) Shortness of breath Status: Acute Family History Hypertension Social History Smoking Status: Former Smoker Alcohol Use: none Drug Use: none Housing Status: lives with family Allergies Coded Allergies: Pregabalin (Verified Allergy, Severe, ANAPHYLAXIS, 10/06/17) face swelling Hydrochlorothiazide (Verified Allergy, Mild, hives, 12/15/16) Simethicone (Verified Allergy, Mild, Muscle pain, 12/15/16) Egg (Verified Allergy, Unknown, GI SYMPTOMS, 02/24/18) N/V from whole eggs, not egg derived products Current Inpatient Medications Current Inpatient Medications Medications (Trade) Dose Ordered Sig/Kalen Route Start Time Stop Time Status Last Admin Dose Admin Ioversol (Optiray 320) 100 ml UD PRN IV 02/23/18 18:30 02/27/18 18:29 Insulin Aspart (novoLOG ASPART) SLIDING SCALE If C... ACHS SC 02/24/18 07:00 03/26/18 06:59 02/24/18 16:48 3 UNITS Glucose (Glucose 40% Gel) 15-30 GRAMS 15 GRAMS... UD PRN PO 02/24/18 00:00 03/26/18 00:00 Glucose (Glucose Chew Tab) 4-8 Tablets 4 Tabl... UD PRN PO 02/24/18 00:00 03/26/18 00:00 Dextrose (Dextrose 50% 50ML Syringe) 25-50ML 25ML FOR ... UD PRN IV 02/24/18 00:00 03/26/18 00:00 Glucagon (Glucagon Inj) 1 mg UD PRN SQ 02/24/18 00:00 03/26/18 00:00 Carbohydrates (Carbohydrates For Hypoglycemia) 15-30 GRAMS 15 grams if BSG 54-69... UD PRN PO 02/24/18 00:00 03/26/18 00:00 Prochlorperazine Edisylate 5 mg/ Syringe 5 ml @ 5 mls/min Q6H PRN IV 02/24/18 00:00 03/26/18 00:00 02/24/18 03:56 5 MLS/MIN Morphine Sulfate (MoRPHine SULFATE INJ) 4 mg Q3H PRN IV 02/24/18 00:00 03/10/18 00:00 02/24/18 20:44 4 MG Senna/Docusate Sodium (Senokot S Tab) 1 tab BID PO 02/24/18 09:00 03/26/18 08:59 02/24/18 20:22 1 TAB Polyethylene (Miralax Powder Packet) 17 gm DAILY PRN PO 02/24/18 00:00 03/26/18 00:00 Amlodipine Besylate (Norvasc Tab) 10 mg DAILY PO 02/24/18 09:00 03/26/18 08:59 Future Hold 02/24/18 08:22 10 MG Baclofen (Lioresal Tab) 10 mg TID PO 02/24/18 09:00 03/26/18 08:59 02/24/18 20:21 10 MG Gabapentin (Neurontin Tab) 800 mg TID PO 02/24/18 09:00 03/26/18 08:59 02/24/18 20:23 800 MG Nortriptyline HCl (Pamelor Cap) 10 mg HS PO 02/24/18 21:00 03/26/18 20:59 02/24/18 20:23 10 MG Sertraline HCl (Zoloft Tab) 200 mg HS PO 02/24/18 21:00 03/26/18 20:59 02/24/18 20:22 200 MG Miscellaneous Information (Consult) 1 ea UD PRN N/A 02/24/18 00:30 03/26/18 00:29 Ondansetron HCl (Zofran Inj) 4 mg Q6H PRN IV 02/24/18 00:00 03/26/18 00:00 02/24/18 20:43 4 MG Albuterol/ Ipratropium (Duoneb) 3 ml Q2H PRN INH 02/24/18 00:00 03/26/18 00:00 Piperacillin Sod/ Tazobactam Sod 3.375 gm/Sodium Chloride 115 ml @ 28.75 mls/ hr Q8H IV 02/24/18 01:00 03/03/18 00:59 02/24/18 16:45 28.75 MLS/HR Acetaminophen (Tylenol Tab) 325 mg Q6H PRN PO 02/24/18 01:15 03/26/18 00:00 Miscellaneous Information (Check Fentanyl Patch Placement) 1 ea QS N/A 02/24/18 08:00 03/26/18 07:59 02/24/18 20:26 1 EA Lactobacillus Acidophilus (Floranex Tab) 4 tab TIDM PO 02/24/18 07:30 03/26/18 07:29 02/24/18 16:46 4 TAB Oxycodone HCl (Roxicodone Immediate Rel Tab) 30 mg Q4H PRN PO 02/24/18 05:45 03/10/18 05:44 02/24/18 16:52 30 MG Fentanyl (Duragesic Patch) 25 mcg Q3D TD 02/26/18 09:00 03/12/18 08:59 Miscellaneous (Fentanyl Patch Remove & Waste) 1 ea Q3D N/A 02/26/18 09:00 03/28/18 08:59 Enoxaparin Sodium (Lovenox Inj) 90 mg Q12 SQ 02/24/18 22:00 03/26/18 21:59 02/24/18 20:24 90 MG Miscellaneous Information (Consult) 1 ea UD PRN N/A 02/24/18 12:22 03/26/18 12:21 Vancomycin HCl 1250 mg/Sodium Chloride 275 ml @ 125 mls/hr Q8H IV 02/24/18 20:00 03/03/18 19:59 02/24/18 20:20 125 MLS/HR Losartan Potassium (coZAAR TAB) 25 mg QPM PO 02/24/18 21:00 03/26/18 20:59 02/24/18 20:25 25 MG Metoprolol Succinate (Toprol Xl Tab) 12.5 mg QAM PO 02/25/18 09:00 03/27/18 08:59 Review of Systems Constitutional: + weakness (generalized), + fatigue, No fever, No chills ENT: + sore throat Respiratory: + cough, + hemoptysis (yesterday, small blood streaked sputum), No wheezing Cardiovascular: + chest pain (tightness - see HPI. none currently), + edema, No palpitations Abdomen: + pain, + nausea, + constipation, No vomiting, No diarrhea Musculoskeletal: No joint pain, No calf pain Genitourinary - Female: No dysuria, No urinary frequency Neurologic: + numbness/tingling (history of neuropathy) Endocrine: + fatigue Physical Exam Date Time Temp Pulse Resp B/P (MAP) Pulse Ox O2 Delivery O2 Flow Rate FiO2 02/24/18 19:34 36.5 68 20 107/66 (80) 98 Nasal Cannula 2.0 02/24/18 16:00 Nasal Cannula 2.0 02/24/18 15:08 37.0 66 20 96/63 (74) 98 Nasal Cannula 2.0 02/24/18 12:00 Nasal Cannula 2.0 02/24/18 11:15 36.7 70 20 119/66 (83) 96 Nasal Cannula 2.0 02/24/18 08:00 Nasal Cannula 2.0 02/24/18 07:00 37.1 82 16 104/69 (81) 93 Nasal Cannula 2.0 02/24/18 04:00 95 Nasal Cannula 4.0 02/24/18 03:45 36.8 80 15 123/78 (93) 95 Nasal Cannula 4.0 02/24/18 00:15 36.7 72 22 112/70 98 Nasal Cannula 4.0 02/23/18 23:17 78 20 118/75 99 Nasal Cannula 2.0 02/23/18 21:30 70 20 126/74 98 Nasal Cannula 2.0 General Appearance: no apparent distress, + pertinent finding (chronically ill) Head: normocephalic, atraumatic Eyes: sclerae normal ENT: pharynx normal Neck: supple, no adenopathy Respiratory/Chest: chest non-tender, lungs clear, normal breath sounds, no respiratory distress, no accessory muscle use Cardiovascular: regular rate, rhythm, + pertinent finding (+edema) Abdomen/GI: normal bowel sounds, soft, + tenderness (right sided, ) Extremities/Musculoskelatal: + pedal edema (1+) Neurologic/Psych: alert, oriented x 3, + pertinent finding (grossly nonfocal) Laboratory Results Last 24 Hours Test 02/23/18 22:28 02/24/18 05:00 02/24/18 05:11 02/24/18 11:32 Erythrocyte Sedimentation Rate 66 mm/hr Total Creatine Kinase 259 U/L 200 U/L Troponin I 4.500 ng/ml 3.540 ng/ml C-Reactive Protein 14.70 mg/dl Bedside Glucose 128 mg/dl 138 mg/dl White Blood Count 6.77 K/uL Red Blood Count 3.76 M/uL Hemoglobin 9.1 g/dL Hematocrit 27.9 % Mean Corpuscular Volume 74.2 fL Mean Corpuscular Hemoglobin 24.2 pg Mean Corpuscular Hemoglobin Concent 32.6 g/dl Platelet Count 250 K/uL Mean Platelet Volume 8.8 fL Neutrophils (%) (Auto) 90.4 % Lymphocytes (%) (Auto) 6.9 % Monocytes (%) (Auto) 1.6 % Eosinophils (%) (Auto) 0.6 % Basophils (%) (Auto) 0.1 % Neutrophils # (Auto) 6.11 K/uL Lymphocytes # (Auto) 0.47 K/uL Monocytes # (Auto) 0.11 K/uL Eosinophils # (Auto) 0.04 K/uL Basophils # (Auto) 0.01 K/uL RDW Standard Deviation 47.9 fL RDW Coefficient of Variation 18.1 % Immature Granulocyte % (Auto) 0.4 % Immature Granulocyte # (Auto) 0.03 K/uL Absolute Reticulocyte Count 0.03 10^6/uL Percent Reticulocyte Count 0.9 % Sodium Level 132 mmol/L Potassium Level 3.8 mmol/L Chloride Level 101 mmol/L Carbon Dioxide Level 25 mmol/L Anion Gap 6.0 mmol/L Blood Urea Nitrogen 12 mg/dl Creatinine 0.40 mg/dl Est Creatinine Clear Calc Drug Dose 189.0 ml/min Estimated GFR () 142.8 Estimated GFR (Non- 123.2 BUN/Creatinine Ratio 29.9 Random Glucose 127 mg/dl Calcium Level 8.0 mg/dl Iron Level 84 mcg/dl Total Iron Binding Capacity 210 mcg/dl Transferrin 187 mg/dl Transferrin % Saturation 32 % Ferritin 511.8 ng/ml Vitamin B12 Level 1143 pg/mL Folate > 24.00 ng/mL Test 02/24/18 12:27 02/24/18 16:12 02/24/18 20:37 Hemoglobin 9.1 g/dL Hematocrit 28.3 % Bedside Glucose 125 mg/dl 105 mg/dl Assessment & Plan 48 year old female with metastatic pancreatic cancer with lung and liver metastases C1D4 of palliative chemo with FOLFIRINOX (5FU LV IRINOTECAN AND OXALIPLATIN) sent to ER for evaluation for facial swelling She was started on lovenox due to concern for a thrombus on her CT chest per radiology along left brachiocephalic the portacath per radiology UE venous doppler was negative for DVT Recommend allergy referral as well- spoke to hospitalist this morning to check tryptase level I discussed with the patient that current EF is also low on echo as well Monitor CBC Patient understands the overall poor prognosis of pancreatic cancer She said she would like to consider additional treatment. Given her low EF and symptoms discussed with her alternative option of gemcitabine/abraxane however, she would need to follow up in office upon discharge. f/u cardiology recs. antiemetics as needed for nausea follow up in the office upon discharge support provided and her questions were discharged thank you for consult
[2018-02-25] MEDS: PIPERACILL/TAZOBAC IV 3.375 GM in NSS 100ML IV SCH ×2 (00:47→07:52)
[2018-02-25] MEDS: VANCOMYCIN IV 1,250 MG in SODIUM CHLORIDE 0.9% 250ML 250 ML IV SCH ×2 (03:13→11:31)
[2018-02-25] MEDS: ONDANSETRON INJ 2 MG/ML 2 ML VIAL IV PRN ×2 (03:13→10:35)
[2018-02-25] MEDS: MoRPHine SULFATE 2 MG/ML CARP IV PRN ×2 (03:14→16:02)
[2018-02-25 03:17] VITALS: BP 123/76; PULSE 82; TEMP 37.1; O2SAT 97
[2018-02-25 05:55] LABS: BASO % 0.1 %; BASO ABS # 0.01 K/uL (0-0.2); EOS % 0.8 %; EOS ABS # 0.06 K/uL (0-0.5); HEMATOCRIT 30.9 % (37-47); HEMOGLOBIN 9.7 g/dL (12.0-16.0); IG# 0.04 K/uL (0.00-0.02); LYMPH % 6.7 %; LYMPH ABS # 0.48 K/uL (1.2-3.4); MEAN CELL VOLUME 75.2 fL (80-100); MEAN CORPUSCULAR HEMOGLOBIN 23.6 pg (25-34); MEAN CORPUSCULAR HGB CONC 31.4 g/dl (32-36); MEAN PLATELET VOLUME 9.2 fL (7.4-10.4); MONO % 1.7 %; MONO ABS # 0.12 K/uL (0.11-0.59); NEUT % 90.1 %; NEUT ABS # 6.45 K/uL (1.4-6.5); PLATELET COUNT 260 K/uL (130-400); RED CELL DISTRIBUTION WIDTH CV 18.4 % (11.5-14.5); RED CELL DISTRIBUTION WIDTH SD 48.6 fL (36.4-46.3); WHITE BLOOD COUNT 7.16 K/uL (4.8-10.8)
[2018-02-25] MEDS: OXYCODONE HCL IR 5 MG TAB (IMMEDIATE RELEASE) PO PRN ×3 (06:07→17:32)
[2018-02-25 07:02] VITALS: BP 105/60; PULSE 76; TEMP 36.7; O2SAT 92
[2018-02-25] MEDS: BACLOFEN 10 MG TAB PO SCH ×2 (07:52→13:12)
[2018-02-25] MEDS: GABAPENTIN 800 MG TAB PO SCH ×2 (07:53→13:12)
[2018-02-25] MEDS: ENOXAPARIN 100 MG/1ML SYR SQ SCH (07:53)
[2018-02-25] MEDS: LACTOBACILLUS ACIDOPHILUS (FLORANEX) TAB PO SCH ×3 (07:53→16:05)
[2018-02-25] MEDS: DOCUSATE SODIUM/SENNA 50/8.6MG TAB PO SCH (07:54)
[2018-02-25] MEDS: CHECK FENTANYL PATCH PLACEMENT SCH ×2 (07:55→16:06)
[2018-02-25] MEDS: INSULIN ASPART 100 UNITS/ML 3 ML PEN SC SCH ×3 (07:56→16:15)
[2018-02-25] MEDS ORDERED: METOPROLOL SUCC 25MG EXT REL TAB PO SCH (09:00)
[2018-02-25 11:21] VITALS: BP 93/49; PULSE 71; O2SAT 91
[2018-02-25 11:30] VITALS: BP 93/49; PULSE 69; TEMP 37.2; O2SAT 93
[2018-02-25] MEDS ORDERED: VANCOMYCIN TROUGH ONE (11:30)
[2018-02-25 15:55] VITALS: BP 108/71; PULSE 74; TEMP 36.7; O2SAT 98
--- NOTE | 2018-02-25 16:16 | Pharmacy Progress Note ---
Pharmacy Abx Dose Short Note Date of Service February 25, 2018. Assessment & Plan Assessment 48 year old female receiving vancomycin and zosyn for treatment of pneumonia * Immunocompromised on chemotherapy, metastatic pancreatic CA Plan Vancomycin * Trough level of 18.9 mcg/mL is therapeutic * Continue dose of 1250 mg IV every 8 hours * Goal trough level for pulmonary : 15 to 20 mcg/mL * Repeat trough level to be ordered in ~ 48 hours if vanco continued * MRSA swab negative, BC negative to date -> consider d/c MRSA coverage Pharmacy will continue to follow and will adjust dose/frequency as necessary. Thank you.
[2018-02-25] MEDS ORDERED: TPRSR25 PO (17:10)
[2018-02-25] MEDS ORDERED: AMOX1TAB43 PO (17:10)
[2018-02-25] MEDS ORDERED: CZR50 PO (17:10)
[2018-02-25 17:27] VITALS: BP 108/71; PULSE 74; TEMP 36.7; O2SAT 98
[2018-02-25] MEDS ORDERED: AMOXICILLIN/CLAVULANATE TAB 875 MG TAB PO SCH (17:30)
--- NOTE | 2018-02-25 17:31 | Discharge Summary ---
Discharge Summary Date of Service February 25, 2018. Discharge Summary Admission Date: February 23, 2018 at 22:39 Discharge Date: February 25, 2018 Discharge Disposition: Home Principal Diagnosis: HCAP New-onset cardiomyopathy DVT-L internal jugular vein metastatic pancreatic cancer Consultations: Cardiology-Dr. Morse Medication Reconciliation New Medications: Amoxicillin & Pot Clavulanate (Amoxicillin/Clavulanate P) 1 Tab Tab 875 MG PO BIDM for 7 Days, #14 TAB Losartan Potassium (Losartan Potassium) 50 Mg Tab 25 MG PO QPM for 30 Days, #30 TAB 1 Refill Metoprolol Succinate (Metoprolol Succinate ER) 25 Mg Tabcr 12.5 MG PO QAM for 30 Days, #15 TAB Continued Medications: Baclofen (Lioresal) 10 Mg Tab 10 MG PO TID, TAB Diphenoxylate/Atropine (Lomotil) Tab 1 TAB PO DAILY PRN for Diarrhea, TAB Enoxaparin (Lovenox) 80 Mg/0.8 Ml Inj 80 MG SQ Q12H, SYR Fentanyl (Fentanyl) 25 Mcg Tdsy 1 PATCH TOP Q72H Furosemide (Lasix) 40 Mg Tab 40 MG PO BID PRN for Fluid Retention/Swelling, TAB Gabapentin (Neurontin) 800 Mg Tab 800 MG PO TID, TAB Glipizide (Glucotrol) 5 Mg Tab 10 MG PO DAILY, TAB TAKE 2 TABLETS DAILY BEFORE A MEAL Metformin Hcl (Glucophage) 850 Mg Tab 850 MG PO BIDM, TAB TAKE THIS MEDICATION WITH MORNING AND EVENING MEALS Nortriptyline (Pamelor) 10 Mg Cap 10-20 MG PO HS, CAP Ondansetron Hcl (Zofran) 8 Mg Tab 8 MG PO TID PRN for Nausea, TAB Oxycodone HCl (Oxycodone HCl) 30 Mg Tab 30 MG PO Q4H PRN for Pain Potassium Chloride (Potassium Chloride Er) 10 Meq Cap 10 MEQ PO BID PRN for If Lasix Taken, CAP Prochlorperazine Maleate (Compazine) 10 Mg Tab 10 MG PO Q6H PRN for Nausea, TAB Sertraline (Zoloft) 100 Mg Tab 200 MG PO HS, TAB Spironolactone (Aldactone) 25 Mg Tab 25 MG PO DAILY PRN for Leg Swelling, TAB Discontinued Medications: Amlodipine (Norvasc) 10 Mg Tab 10 MG PO DAILY, TAB Losartan Potassium (Cozaar) 50 Mg Tab 50 MG PO QPM, TAB Admission Information HPI (per Admitting provider): Patient is a 48-year-old female with a PMH of metastatic pancreatic cancer, HTN , DM II and other medical problems listed below who presents with intermittent facial swelling and SOB 2 days. Patient was just started on Fluorouracil chemotherapy on Wednesday for pancreatic cancer with metastases to kidneys, lungs and lymph nodes. Started to notice intermittent facial swelling once treatment was started, specifically when she wakes up in the morning. Patient's last chemotherapy dose was administered at home and was just finished prior to arrival to ED. States that swelling has since resolved. Has also been short of breath at rest for the past few days, which is not her baseline. Finds it easier to breathe when she is sitting upright at the edge of the bed. Has had a productive cough for the past 2 days with bloody mucus. Also has an associated "burning" pain in left chest with radiation up to throat with associated belching. Endorses nausea and vomiting since last week. Continues to have chronic abdominal pain. Denies fever, chills, headache, palpitations or dysuria. LE swelling at baseline. In ED, patient found to have PNA on CT chest. No leukocytosis. Troponin is elevated to 4.68. Physical Exam (per Admitting): General Appearance: + mild distress, + pertinent finding (chronically ill appearing. Seated at edge of bed. ) Head: normocephalic, atraumatic Eyes: normal inspection, PERRL, sclerae normal ENT: normal ENT inspection, hearing grossly normal, pharynx normal (dry mucous membranes), + pertinent finding (tongue swollen, mucosal sores ) Neck: supple, thyroid normal, trachea midline Respiratory/Chest: chest non-tender, no respiratory distress, no accessory muscle use, + decreased breath sounds (2/2 pain ), + crackles (bibasilar), + pertinent finding (Saturating well on 2L NC ) Cardiovascular: regular rate, rhythm, normal peripheral pulses, + systolic murmur Abdomen/GI: soft, no organomegaly, + tenderness (Diffuse TTP, no guarding ) Extremities/Musculoskelatal: normal inspection, no calf tenderness, + pertinent finding (1+ BLE edema ) Neurologic/Psych: no motor/sensory deficits, alert, oriented x 3, + depressed affect Skin: normal color, warm/dry Hospital Course 48 yo F with known metastatic pancreatic cancer and a known L apical lung mass who reports presenting to the hospital for squeezing chest pain that was taking her breath away. The pain began yesterday and is positional. It was associated with significant shortness of breath and was reported to be worse with lying flat, better with leaning forward. She has a h/o cardiac catheterization 7 years ago that revealed nonobstructive disease and has no h/o stent. She denies any h/o chest pain like this in the past. Trop have decayed overnight. Pt still reports having some chest pain that is a 2/10 but is much less intense than yesterday. She received morphine yesterday but reports that this didn't help her pain; no nitro was given. She reports coughing for the last 7 days and states that she only noticed trace amounts of blood-tinged sputum yesterday. She denies gross hemoptysis. She is taking full dose Lovenox at home for a DVT, which was backed down on admission to [facility] 40 daily. She denies any other issues with bleeding or bruising. She reports that since she received FolFox chemo on 02/21, she has noticed full face swelling. Contrast -enhanced CT scan of the chest yesterday did not identify any blockage in the SVC or PE. 1. Chest pain-differential includes but is not limited to pericarditis, myocarditis or a combined perimyocarditis (likely the case with elevated markers ), acute KS, heart strain 2/2 demand ischemia. She did not have a pericardial friction rub, JVD and is hemodynamically stable. Cardiology is consulted so awaiting recommendations. She is on full dose Lovenox for a h/o brachiocephalic VV clot. She does have a h/o nonobstructive CAD in the past. Chest pain was acute, sharp and positional and EKG this morning reveals some ST elevation in V2 which is a change from yesterday. TTE ordered, awaiting Cards recs. 2. HCAP-no evidence of sepsis, denies fevers or chills. Poss aspiration wtih vomiting yesterday which was associated with chest pain. She is covered wtih Zosyn empirically, but will also add Vancomycin. 3. Facial swelling -x 4 days, related to position so is likely structural. Discussed the CT scan of the chest with radiology who states there are collateral vessels around the L brachiocephalic vein (known h/o clot in this area) and it also looks like there is some reflux of contrast mehran the L IJ. Both vessels may be contributing to her swelling if there is clot/debris still present. No collateral veins are seen on chest, and SVC is clear on scan. Will order a bilateral upper extremity duplex with a view into the L IJ, also to better understand what is going on. She was put back on her full dose Lovenox as she is not bleeding and only has scant blood-tinged sputum, not hemoptysis. 4. Hypoxia-related to pneumonia. Cont supplemental oxygen and treatment as above. 5. Metastatic pancreatic cancer-s/p whipple in 2017 at [facility], multiple chemo regimens in the past. dollows with Dr. Olivares for Oncology. Currently on Folfox which she started on 02/21. 6. Chronic pain related to cancer-cont FEntanyl patch. Pt reports being at her baseline pain at this time. 7. Opioid-induced constipation-reversed with RElistor overnight. 8. Anemia-chronic, likely related to BM suppression from chemo and ACD from cancer. 9. DMII-ISS/glargine while inpatient. Advanced diet this morning per her request. DVT Ppx: SQ lovenox Code status: FULL, per discussion with patient. Note, she is a LEVEL 1, not a LEVEL 3. PCP: Pamela Dispo: Plan to return home once medically stable. Marilyn Garcia DO [facility] Hospitalist Total time spent on discharge = 60 minutes This includes examination of the patient, discharge planning, medication reconciliation, and communication with other providers. [place] [id number] Discharge Medical Patient Name: Sandy Evans Unit Number: [id number] Date of : 1970 Patient Status: Admitted Inpatient Attending Doctor: Marilyn Garcia DO DI: Medical v5 Discharge Instructions Date of Service February 25, 2018. Admission Reason for Admission: Hcap, Troponin Level Elevated Discharge Discharge Diagnosis / Problem: New onset Cardiomyopathy, DVT L Internal Jugular vein, HCAP Discharge Goals Goal(s): Improve function, Increase independence, Improve disease control Activity Recommendations Activity Limitations: per Instructions/Follow-up section . Instructions / Follow-Up Instructions / Follow-Up Please take all medications as instructed. You were given 7 days of antibiotics to complete course for pneumonia. It is recommended to get a repeat chest xray in 4-6 weeks to ensure resolution of the pneumonia. This may be ordered through your primary care provider's office (PCP ). Please continue to follow-up with Oncology as instructed. Please continue to take LOVENOX injections twice daily indefinitely or until otherwise instructed by a physician. It is recommended that you follow-up with your PCP within one week of discharge . A hospital course will be sent to Dr. Jose Luis Santiago summarizing your stay. It was a pleasure taking care of you! Call if you have any questions or problems. You can reach a [facility] hospitalist on duty at [facility] 24 hours a day by calling [phone]. Take care of yourself. Marilyn Garcia DO [facility] Hospitalist Current Hospital Diet Patient's current hospital diet: AHA Diet (Heart Healthy), Diabetes Type 2 Diet Discharge Diet Recommended Diet: AHA Diet (Heart Healthy), Diabetes Type 2 Diet Procedures Procedures Performed: TTE Pending Studies Studies pending at discharge: no Laboratory Results Hemoglobin A1c Test 02/23/18 18:45 Range/Units Estimated Average Glucose 146 mg/dl Hemoglobin A1c 6.7 H 4.5-5.6 % Medical Emergencies . Who to Call and When: Medical Emergencies: If at any time you feel your situation is an emergency, please call 911 immediately. . Non-Emergent Contact Non-Emergency issues call your: Primary Care Provider . . "Provider Documentation" section prepared by Marilyn Garcia. . [place] Drug Monitoring Program Search Results: patient reviewed within database, no issues identified Additional Copies To Jose Luis Santiago II MD
--- NOTE | 2018-02-25 17:58 | Hematology/Oncology Prog Note ---
Hematology/Onc Progress Note Date of Service February 25, 2018. Subjective Patient was rounded on at bedside. She reports no issues. She states her tongue/ face edema has resolved, no issues with breathing or eating. She denies fever. She has nausea, manageable with antiemetic. She had BM today. She states her right supraclavicular area is still worker helper. Review of Systems: Constitutional: No fever Respiratory: No shortness of breath Cardiovascular: No chest pain Abdomen: + nausea, No diarrhea, No constipation Vital Signs Vital Signs Past 12 Hours Date Time Temp Pulse Resp B/P (MAP) Pulse Ox O2 Delivery O2 Flow Rate FiO2 02/25/18 17:27 36.7 74 20 98 Nasal Cannula 02/25/18 16:00 Room Air 02/25/18 15:55 36.7 74 20 108/71 (83) 98 Room Air 02/25/18 12:00 Nasal Cannula 2.0 02/25/18 11:30 37.2 69 18 93/49 (64) 93 Room Air 02/25/18 11:21 71 91 02/25/18 08:00 Nasal Cannula 2.0 02/25/18 07:02 36.7 76 17 105/60 (75) 92 Nasal Cannula 2.5 Physical Exam Head: normocephalic, atraumatic Neck: supple, pertinent finding (no edema) Lungs: Respiratory Effort: no dyspnea Auscuitation: breath sounds normal Cardiovascular: Heart Auscultation: RRR Laboratory 02/25/18 05:36 Red Blood Count 4.11, Mean Corpuscular Volume 75.2, Mean Corpuscular Hemoglobin 23.6, Mean Corpuscular Hemoglobin Concent 31.4, Mean Platelet Volume 9.2, Neutrophils (%) (Auto) 90.1, Lymphocytes (%) (Auto) 6.7, Monocytes (%) (Auto) 1.7, Eosinophils (%) (Auto) 0.8, Basophils (%) (Auto) 0.1, Neutrophils # (Auto) 6.45, Lymphocytes # (Auto) 0.48, Monocytes # (Auto) 0.12, Eosinophils # (Auto) 0.06, Basophils # (Auto) 0.01 Test 02/25/18 05:36 02/25/18 11:32 02/25/18 16:31 White Blood Count 7.16 K/uL (4.8-10.8) Red Blood Count 4.11 M/uL (4.2-5.4) Hemoglobin 9.7 g/dL (12.0-16.0) Hematocrit 30.9 % (37-47) Mean Corpuscular Volume 75.2 fL (80-100) Mean Corpuscular Hemoglobin 23.6 pg (25-34) Mean Corpuscular Hemoglobin Concent 31.4 g/dl (32-36) Platelet Count 260 K/uL (130-400) Mean Platelet Volume 9.2 fL (7.4-10.4) Neutrophils (%) (Auto) 90.1 % Lymphocytes (%) (Auto) 6.7 % Monocytes (%) (Auto) 1.7 % Eosinophils (%) (Auto) 0.8 % Basophils (%) (Auto) 0.1 % Neutrophils # (Auto) 6.45 K/uL (1.4-6.5) Lymphocytes # (Auto) 0.48 K/uL (1.2-3.4) Monocytes # (Auto) 0.12 K/uL (0.11-0.59) Eosinophils # (Auto) 0.06 K/uL (0-0.5) Basophils # (Auto) 0.01 K/uL (0-0.2) RDW Standard Deviation 48.6 fL (36.4-46.3) RDW Coefficient of Variation 18.4 % (11.5-14.5) Immature Granulocyte % (Auto) 0.6 % Immature Granulocyte # (Auto) 0.04 K/uL (0.00-0.02) Vancomycin Level Trough 18.9 mcg/ml (SEE COMMENT) Bedside Glucose 119 mg/dl (70-90) Assessment & Plan 48 year old female with 1. metastatic pancreatic cancer with lung and liver metastases C1D4 of palliative chemo with FOLFIRINOX 2. Oral/neck edema on admission 3. Pati-catheter thrombus on of LUE on US * Patient's airway symptoms have resolved * Has been questioned if due to her chemotherapy regimen, Dr. Olivares is planning on avoiding FOLFIRINOX in future * Patient can follow up with deputy sheriff/investigator in outpatient setting * Patient remains on therapeutic Lovenox, advise to continue * Should have anticoag clinic referral for monitoring * Follow up with Dr. Olivares on discharge Dr. Olivares is attending physician-please see her addendum. Discussed case with Alvina Torrez PA-C and agree with her note
--- NOTE | 2018-02-25 18:17 | PROGRESS NOTE ---
DATE: 02/25/2018 Cardiology followup note. SUBJECTIVE: Patient had no further chest pain or shortness of breath overnight. Notes no dizziness or lightheadedness. She has tolerated medication changes relatively well. OBJECTIVE: VITAL SIGNS: Heart rate 74, blood pressure is 108/71. NECK: Plethoric. LUNGS: Reveal diminished breath sounds but are predominantly clear. CARDIOVASCULAR: Regular. There is no S3 gallop. ABDOMEN: Soft, nontender. EXTREMITIES: Free of edema. LABORATORY DATA: Today, white cell count 7.1, hemoglobin is 9.7. IMPRESSION AND PLAN: Complex 48-year-old female struggling with metastatic pancreatic carcinoma on chemotherapy, presented with chest pain and venous thrombosis of the left internal jugular. Echocardiogram reflects expanded apex, likely reflecting stress-induced apical cardiomyopathy. Underlying ischemic heart disease, not completely excluded, though findings are consistent with the chemotherapy contributing factor as well. We have adjusted medications, initiated beta du, discontinued amlodipine and continued low-dose losartan. We will continue as above. If heart rate or blood pressures are up, there is room to increase metoprolol to twice per day.
[2018-02-26] MEDS ORDERED: FENTANYL 25 MCG/HR TDSY TD SCH (09:00)
[2018-02-26] MEDS ORDERED: FENTANYL PATCH REMOVE & WASTE SCH (09:00)
[2018-02-27] MEDS ORDERED: FENTANYL PATCH REMOVE & WASTE SCH (09:00)
== END 2018-02-25 19:00 | disposition home health service (06) | DRG 314 ==
LOC: C.EDB 18:00 → C.2E 22:39 → ENRESERV 22:47
PROVIDERS: ADMIT Hospitalist; ATTEND Hospitalist
DX: I51.81 Takotsubo syndrome (principal); I40.8 Other acute myocarditis; J69.0 Pneumonitis due to inhalation of food and vomit; J18.9 Pneumonia, unspecified organism; C25.9 Malignant neoplasm of pancreas, unspecified; C79.00 Secondary malignant neoplasm of unspecified kidney and renal pelvis; C78.00 Secondary malignant neoplasm of unspecified lung; I82.C12 Acute embolism and thrombosis of left internal jugular vein; R79.89 Other specified abnormal findings of blood chemistry; I11.9 Hypertensive heart disease without heart failure; D64.9 Anemia, unspecified; E11.9 Type 2 diabetes mellitus without complications; R13.10 Dysphagia, unspecified; K59.03 Drug induced constipation; G89.3 Neoplasm related pain (acute) (chronic); Z79.84 Long term (current) use of oral hypoglycemic drugs; Z92.3 Personal history of irradiation; Z86.718 Personal history of other venous thrombosis and embolism; Z86.711 Personal history of pulmonary embolism; Z91.012 Allergy to eggs; Z82.49 Family history of ischemic heart disease and other diseases of the circulatory system